=== PATIENT | male | born 1955 | race Caucasian/White ===

== ENCOUNTER → 2018-10-25 | Outpatient (CLI) | payer OTHER ==
[~2018-10-25] MED LIST: ALLERGY10 M1 PO; AMARYL4 MG PO; AMLODIPINE BESY10 MG PO; ASPIR 8181 MG PO; ATORVASTATIN CA40 MG PO; AZITHROMYCIN 2250 MG PO; BRILINTA90 MG PO; CEFUROXIME500 MG PO; COREG CR40 MG PO; COZAAR100 MG PO; D3 DOTS2000 UNIT PO; DEMADEX20 MG PO; DILTIAZEM 24HR180 M2; DUONEB 2.5-0.5 M3 ML INH; EFFIENT10 MG PO; ELIQUIS2.5 MG PO; ENTRESTO 97 MG1 EACH; ENTRESTO 97 MG1 EACH PO; FLONASE 0.05%50 MCG NASAL; HYTRIN 5 M5 MG/1 CAP PO; IMDUR 30 MG TAB30 M1 PO; IRON325 PO; ISOSORBIDE DINI30 MG PO; KLOR-CON 1010 MEQ PO; KLOR-CON 88 ME1 PO; LASIX 40 MG TAB40 M2 PO; LIALDA1.2 GM PO; MERCAPTOPURINE50 MG PO; METFORMIN HCL500 MG PO; MUCINEX TA600 MG/TA2 PO; NASONEX17 GM NASAL; NEBULIZER MISCELL; NITROGLYCERIN0.4 MG SUBLING; OMEPRAZOLE20 M2 PO; PACERONE 200 M200 M1 PO; PLAVIX 75 MG TA75 M1 PO; POTASSIUM20 PO; PREDNISONE 20 M20 MG PO; PREDNISONE 5 MG5 M1 PO; ZPAK PO
== END ==
LOC: M.WC 00:57
DX: E11.621 Type 2 diabetes mellitus with foot ulcer (principal); I87.313 Chronic venous hypertension (idiopathic) with ulcer of bilateral lower extremity; L97.521 Non-pressure chronic ulcer of other part of left foot limited to breakdown of skin; E11.622 Type 2 diabetes mellitus with other skin ulcer; L97.811 Non-pressure chronic ulcer of other part of right lower leg limited to breakdown of skin; L97.821 Non-pressure chronic ulcer of other part of left lower leg limited to breakdown of skin; E78.5 Hyperlipidemia, unspecified; I11.0 Hypertensive heart disease with heart failure; I50.9 Heart failure, unspecified; I42.9 Cardiomyopathy, unspecified; I89.0 Lymphedema, not elsewhere classified; I25.10 Atherosclerotic heart disease of native coronary artery without angina pectoris; Z95.5 Presence of coronary angioplasty implant and graft; Z95.810 Presence of automatic (implantable) cardiac defibrillator; Z79.82 Long term (current) use of aspirin

== ENCOUNTER → 2018-11-01 | Outpatient (CLI) | payer OTHER | LOC: M.WC 02:31 | DX: E11.622 Type 2 diabetes mellitus with other skin ulcer (principal); I87.312 Chronic venous hypertension (idiopathic) with ulcer of left lower extremity; L97.822 Non-pressure chronic ulcer of other part of left lower leg with fat layer exposed; E78.5 Hyperlipidemia, unspecified; I11.0 Hypertensive heart disease with heart failure; I50.9 Heart failure, unspecified; I42.9 Cardiomyopathy, unspecified; I89.0 Lymphedema, not elsewhere classified; I25.10 Atherosclerotic heart disease of native coronary artery without angina pectoris ==

== ENCOUNTER 2018-11-08 17:59 | Inpatient (IN) | payer OTHER ==
[~2018-11-08] VITALS: Ht 165.1 cm; Wt 94.7 kg
--- NOTE | ~2018-11-08 | CON ---
[address] [address] CONSULTATION Name: BEVERLEY VENTURA ORO Room: [address] IN M.R.#: [id number] Admission: 11/08/18 Attend Phys: Cr Parada MD Discharge: Date of : 51 Report #: [id number] THIS REPORT FOR: //name// CC: Cr Portillo DATE OF SERVICE: 11/11/2018 REQUESTING PHYSICIAN: Dr. Marie. REASON FOR CONSULTATION: Abnormal renal function. HISTORY OF PRESENT ILLNESS: The patient is a 63-year-old gentleman, with medical history significant for ischemic cardiomyopathy with ejection fraction of left ventricle around 25%. Also has history of coronary artery disease, chronic kidney disease stage 3, admitted with the chief complaints of progressive shortness of breath, weight gain, increased abdominal girth and increased lower extremity edema. He was diagnosed with CHF exacerbation and he is being diuresed now, is doing better. His creatinine is 2.3, it was 2.2 on 10/2017 and it was 1.6 2 years ago. PAST MEDICAL HISTORY: As mentioned earlier. SOCIAL HISTORY: No current tobacco or alcohol abuse. FAMILY HISTORY: Negative for renal disease. MEDICATIONS: Reviewed from my standpoint. Now, he is on Rocephin, IV insulin and he is on furosemide 80 mg IV twice a day, also diltiazem 180 mg daily. REVIEW OF SYSTEMS: Positive for the symptoms as I mentioned earlier. All other 10 systems reviewed and negative. PHYSICAL EXAMINATION: GENERAL: Awake, alert, oriented. VITAL SIGNS: Blood pressure 118/69, heart rate 64, afebrile. HEENT: Pupils are round. NECK: Fatty. LUNGS: Clear. CARDIOVASCULAR: Tachycardia. ABDOMEN: Obese, soft. EXTREMITIES: Lower extremities have trace to +1 edema. LABORATORY DATA: Significant for potassium of 2.8, BUN 35, creatinine 2.3. His proBNP was 16,466. [place] [id number] CONSULTATION Name: BEEVRLEY VENTURA [facility] Room: [address] IN [facility].#: [id number] Admission: 11/08/18 Attend Phys: Cr Parada MD Discharge: Date of : 51 Report #: [id number] ASSESSMENT: 1. Congestive heart failure exacerbation with ejection fraction of left ventricle around 25%. He is responding to IV diuretics well and feeling much better. 2. Chronic kidney disease, stage 3, most likely due to under perfusion of the kidneys. Whether or not he has some mild acute decompensation is not clear. Certainly, it is possible that his renal function would drop over the last 2 years and creatinine around 2-2.3 could be his baseline. 3. Obesity. PLAN: 1. Careful monitoring of his intake, output, and careful monitoring of his renal function. If his renal function deteriorate, I would cut down on his diuretics. It is possible that the patient would benefit from a switch to p.o. medication soon. 2. Replace his low potassium level. Thank you very much for asking my opinion on abnormal renal function. By: [id number] Jackson MD /SIMIN
[~2018-11-08 17:59] MED LIST changes: -ASMANEX110 MCG NASAL; -BUMETANIDE 1 MG1 M1 PO; -ELIQUIS5 MG PO; -FLEXERIL PO; -FOLIC ACID1 MG PO; -KEFLEX500 M1 PO; -LIPITOR80 MG PO; -MEDROL4 MG PO; -OMEPRAZOLE20 MG PO; -PROMETHAZINE-C473 ML PO; -TRAMADOL 50 MG50 MG PO; -VITAMINC500 PO
[2018-11-08 18:07] VITALS: BP 136/79
[2018-11-08] MEDS ORDERED: LASIX 40 MG TAB40 M2 PO (18:14)
[2018-11-08] MEDS ORDERED: PROMETHAZINE-C473 ML PO (18:15)
[2018-11-08] MEDS ORDERED: MEDROL4 MG PO (18:16)
[2018-11-08] MEDS ORDERED: TRAMADOL 50 MG50 MG PO (18:17)
[2018-11-08] MEDS ORDERED: ASMANEX110 MCG NASAL (18:20)
[2018-11-08] MEDS ORDERED: FLEXERIL PO (18:22)
[2018-11-08] MEDS ORDERED: LIALDA1.2 GM PO ×2 (18:23→23:09)
[2018-11-08] MEDS ORDERED: LIPITOR80 MG PO (18:27)
[2018-11-08] MEDS ORDERED: OMEPRAZOLE20 MG PO (18:30)
[2018-11-08] MEDS ORDERED: ASPIR 8181 MG PO (18:30)
[2018-11-08] MEDS ORDERED: METFORMIN HCL500 MG PO (18:31)
[2018-11-08 18:36] LABS: HEMATOCRIT 31.8 % (42.0-52.0); HEMOGLOBIN 10.1 gm/dL (14.0-18.0); MCH 26.2 pg (26.0-34.0); MCHC 31.6 g/dL (28.0-37.0); MCV 82.7 fL (80.0-100.0); MPV 9.3 fl. (7.2-11.1); NUCLEATED RBCS 0 /100WBC; PLATELET COUNT* 209 thou/uL (150-400); RBC 3.84 mil/uL (4.50-6.00); WBC 4.2 thou/uL (4.0-11.0)
[2018-11-08 18:44] LABS: CALCIUM 8.4 mg/dL (8.5-10.1); CREATININE 2.2 mg/dL (0.6-1.3); INR 1.3; POTASSIUM 3.3 mmol/L (3.5-5.1); PROTIME 13.4 Seconds (9.20-11.50)
[2018-11-08 18:56] LABS: ABSOLUTE EOSINOPHILS 0.1 thou/uL (0.0-0.7); ABSOLUTE LYMPHOCYTES 0.4 thou/uL (0.8-5.3); ABSOLUTE MONOCYTES 0.1 thou/uL (0.0-1.2); ABSOLUTE NEUTROPHILS 3.5 thou/uL (1.6-8.1); ANISOCYTOSIS 2+; METAMYELOCYTES 1 %; PLATELET ESTIMATE ADEQUATE; POIKILOCYTOSIS 2+
[2018-11-08 18:57] LABS: TOTAL PROTEIN 6.8 g/dL (6.4-8.2)
[2018-11-08 21:15] VITALS: BP 133/73
[2018-11-08 22:15] VITALS: BP 140/85
[2018-11-08] MEDS ORDERED: ELIQUIS5 MG PO (22:50)
[2018-11-08] MEDS ORDERED: VITAMINC500 PO (22:53)
[2018-11-08] MEDS ORDERED: IMDUR 30 MG TAB30 M1 PO (23:06)
[2018-11-09] VITALS: BP 133/73
[2018-11-09 04:00] VITALS: BP 124/64
[2018-11-09 09:25] LABS: HEMATOCRIT 30.2 % (42.0-52.0); HEMOGLOBIN 9.7 gm/dL (14.0-18.0); MCH 26.6 pg (26.0-34.0); MCHC 32.1 g/dL (28.0-37.0); MCV 82.6 fL (80.0-100.0); MPV 9.1 fl. (7.2-11.1); RBC 3.65 mil/uL (4.50-6.00); RDW-CV 20.5 % (10.5-14.5); WBC 3.5 thou/uL (4.0-11.0)
[2018-11-09 09:36] LABS: CALCIUM 8.9 mg/dL (8.5-10.1); MAGNESIUM 1.8 mg/dL (1.8-2.4)
[2018-11-09 09:39] LABS: POTASSIUM 2.8 mmol/L (3.5-5.1)
[2018-11-09 11:05] LABS: % SATURATION 8 % (20-39); IRON 23 ug/dL (50-175)
[2018-11-09 11:49] LABS: URINE BILIRUBIN NEGATIVE (Negative); URINE BLOOD 3+ (Negative); URINE CLARITY CLEAR; URINE COLOR YELLOW; URINE GLUCOSE-RANDOM NEGATIVE (Negative); URINE KETONES NEGATIVE (Negative); URINE LEUKOCYTES-REFLEX 1+ (Negative); URINE NITRITE-REFLEX NEGATIVE (Negative); URINE PROTEIN 1+ (Negative); URINE SPECIFIC GRAVITY 1.015 (1.005-1.030); URINE UROBILINOGEN 0.2 E.U./dl (0.2-1.0)
[2018-11-09 12:30] LABS: SQUAMOUS 0-3 Few /LPF (0-3)
[2018-11-09 12:31] LABS: URINE WBC-REFLEX >25 Many /HPF (0-5)
[2018-11-09 12:32] LABS: BACTERIA-REFLEX >30 Many /HPF (None Seen); WBC CLUMPS Few (None Seen)
[2018-11-09 12:33] LABS: CRYSTALS None Seen /LPF (None Seen); HYALINE CASTS 4-10 Moderate /LPF (None Seen); MUCUS 0-3 Light strn/LPF (None Seen)
[2018-11-09 13:15] VITALS: BP 130/71
--- NOTE | 2018-11-09 15:03 | 2DMMODE ---
[place] [address] 2 D/M-MODE ECHOCARDIOGRAM Name: BEVERLEY VENTURA ORO Room: [address] IN [facility]#: [id number] Admission: 11/08/18 Attend Phys: Cr Parada, Discharge: Date of : 51 Date of Service: 11/09/18 1503 Report #: [id number] THIS REPORT FOR: //name// APPROVED REPORT Study performed: 11/09/2018 10:53:12 EXAM: Comprehensive 2D, Doppler, and color-flow Echocardiogram Patient Location: In-Patient Room #: 222 Status: routine BSA: 2.11 HR: 64 bpm BP: 133/71 mmHg Rhythm: NSR Other Information Study Quality: Good Indications Congestive Heart Failure 2D Dimensions IVSd: 12.96 (7-11mm) LVOT Diam: 21.10 (18-24mm) LVDd: 62.72 mm PWd: 11.81 (7-11mm) Ascending Ao: 39.34 (22-36mm) LVDs: 52.50 (25-40mm) Aortic Root: 37.69 mm Volumes Left Atrial Volume (Systole) LA ESV Index: 71.10 mL/m2 Aortic Valve AoV Peak Terence.: 1.35 m/s AO Peak Gr.: 7.34 mmHg LVOT Max P.89 mmHg AO Mean Gr.: 3.80 mmHg LVOT Mean P.41 mmHg LVOT Max V: 1.31 m/s AO V2 VTI: 24.32 cm LVOT Mean V: 0.85 m/s ADRIEN (VTI): 3.64 cm2 LVOT V1 VTI: 25.34 cm Mitral Valve E/A Ratio: 3.16 MV Decel. Time: 147.11 ms MV E Max Terence.: 1.10 m/[place] [address] 2 D/M-MODE ECHOCARDIOGRAM Name: BEVERLEY VENTURA ORO Room: [address] IN .R.#: [id number] Admission: 11/08/18 Attend Phys: Cr Parada, Discharge: Date of : 51 Date of Service: 11/09/18 1503 Report #: [id number] MV PHT: 42.66 ms MVA (PHT): 5.16 cm2 TDI E/Lateral E': 8.46 E/Medial E': 18.33 Medial E' Terence.: 0.06 m/s Lateral E' Terence.: 0.13 m/s Pulmonary Valve PV Peak Terence.: 1.11 m/s PV Peak Gr.: 4.95 mmHg Tricuspid Valve RAP Estimate: 15.00 mmHg TR Peak Gr.: 41.02 mmHg RVSP: 56.00 mmHg PA Pressure: 56.00 mmHg Left Ventricle Left ventricle is mildly dilated. There is normal LV segmental wall motion. There is normal left ventricular wall thickness. Left ventricular systolic function is severely decreased. LVEF is 25-30%. Grade IV - fixed restrictive diastolic dysfunction. Right Ventricle Right ventricle is mild to moderately dilated. The right ventricular systolic function is normal. Pacemaker lead is present in the right ventricle. Atria Left atrium is moderately dilated. Right atrium is dilated. Aortic Valve Mild aortic valve sclerosis. Trace aortic regurgitation. There is no aortic valvular stenosis. Mitral Valve The mitral valve is normal in structure. Mild mitral regurgitation. No evidence of mitral valve stenosis. Tricuspid Valve The tricuspid valve is normal in structure. Mild tricuspid regurgitation. Mild pulmonary hypertension. Pulmonic Valve The pulmonary valve is normal in structure. [place] [address] 2 D/M-MODE ECHOCARDIOGRAM Name: BEVERLEY VENTURA Room: [address]#: [id number] Admission: 11/08/18 Attend Phys: Cr Parada, Discharge: Date of : 51 Date of Service: 11/09/18 1503 Report #: [id number] Great Vessels The aortic root is normal in size. IVC is dilated and collapses <50% with inspiration. Pericardium There is no pericardial effusion. Left pleural effusion. <Conclusion> Left ventricle is mildly dilated. There is normal left ventricular wall thickness. Left ventricular systolic function is severely decreased. LVEF is 25-30%. Right ventricle is mild to moderately dilated. Left atrium is moderately dilated. Right atrium is dilated. Mild aortic valve sclerosis. Trace aortic regurgitation. There is no aortic valvular stenosis. The mitral valve is normal in structure. Mild mitral regurgitation. The tricuspid valve is normal in structure. Mild tricuspid regurgitation. Mild pulmonary hypertension. IVC is dilated and collapses <50% with inspiration. There is no pericardial effusion. Left pleural effusion. <ELECTRONICALLY SIGNED> By: Saul Rodriguez MD, FACC 11/09/18 1503 1503 150 Saul Rodriguez MD, FACC /INF
[2018-11-09 16:00] VITALS: BP 135/76
[2018-11-09 19:14] LABS: GLYCOHEMOGLOBIN (HGB A1C) 6.3 % (4.8-5.6)
[2018-11-09 19:15] VITALS: BP 130/72
[2018-11-10] VITALS: BP 142/79
[2018-11-10 04:00] VITALS: BP 124/68; BP 135/66
[2018-11-10 05:13] LABS: HEMATOCRIT 30.6 % (42.0-52.0); HEMOGLOBIN 9.9 gm/dL (14.0-18.0); MCH 26.7 pg (26.0-34.0); MCHC 32.5 g/dL (28.0-37.0); MCV 82.3 fL (80.0-100.0); MPV 9.8 fl. (7.2-11.1); RBC 3.71 mil/uL (4.50-6.00); WBC 4.5 thou/uL (4.0-11.0)
[2018-11-10 05:35] LABS: CALCIUM 8.8 mg/dL (8.5-10.1); CREATININE 2.2 mg/dL (0.6-1.3); MAGNESIUM 1.7 mg/dL (1.8-2.4); POTASSIUM 3.3 mmol/L (3.5-5.1)
[2018-11-10 08:00] VITALS: BP 134/68
[2018-11-10 12:00] VITALS: BP 123/72
[2018-11-10 16:01] VITALS: BP 115/64
--- NOTE | 2018-11-10 17:59 | EKG ---
[place] [address] ELECTROCARDIOGRAM REPORT Name: BEVERLEY VENTURA Room: [address] ADM IN .R.#: [id number] Admission: 11/08/18 Attend Phys: Cr Parada MD Discharge: Date of : 53 Report #: [id number] THIS REPORT FOR: //name// [facility] ED Test Date: 2018-11-08 Test Time: 18:27:14 Pat Name: BEVERLEY VENTURA Department: Room: [facility] Gender: M Car Mover: Africa BANKS : 1955 Requested By: Adwoa Venegas Order Number: [id number] MD: Luke Mckeon Measurements Intervals [place] Rate: 60 P: 12 NH: 219 QRS: -42 QRSD: 121 T: 37 QT: 498 QTc: 498 Interpretive Statements Sinus rhythm Borderline prolonged NH interval Nonspecific IVCD with LAD Nonspecific T abnrm, anterolateral leads Compared to ECG 06/06/2016 14:05:32 Intraventricular conduction delay now present Left bundle-branch block no longer present Electronically Signed On 11-10-2018 17:59:10 TRACKMAN by Luke Mckeon [email or web address] <ELECTRONICALLY SIGNED> By: Luke Mckeon MD, FACC 11/10/18 1759 182 182 Luke Mckeon MD, FACC /EPI
[2018-11-10 20:08] VITALS: BP 122/67
[2018-11-11] VITALS: BP 109/60
[2018-11-11 04:00] VITALS: BP 143/75
[2018-11-11 05:24] LABS: CALCIUM 9.3 mg/dL (8.5-10.1); CREATININE 2.3 mg/dL (0.6-1.3); MAGNESIUM 1.9 mg/dL (1.8-2.4)
[2018-11-11 05:30] LABS: POTASSIUM 2.8 mmol/L (3.5-5.1)
[2018-11-11 08:40] VITALS: BP 135/64
[2018-11-11 11:38] VITALS: BP 102/55
[2018-11-11 15:46] VITALS: BP 118/69
[2018-11-11 20:00] VITALS: BP 118/61
[2018-11-12] VITALS: BP 129/78
[2018-11-12 04:00] VITALS: BP 122/68
[2018-11-12 04:52] LABS: CALCIUM 9.1 mg/dL (8.5-10.1); CREATININE 2.5 mg/dL (0.6-1.3); MAGNESIUM 1.9 mg/dL (1.8-2.4)
[2018-11-12 04:54] LABS: HEMATOCRIT 30.7 % (42.0-52.0); HEMOGLOBIN 10.1 gm/dL (14.0-18.0); MCH 26.4 pg (26.0-34.0); MPV 9.2 fl. (7.2-11.1); RBC 3.83 mil/uL (4.50-6.00); RDW-CV 19.9 % (10.5-14.5); WBC 5.3 thou/uL (4.0-11.0)
[2018-11-12 08:45] VITALS: BP 127/66
[2018-11-12 12:00] VITALS: BP 116/59
[2018-11-12] MEDS ORDERED: FOLIC ACID1 MG PO (12:58)
[2018-11-12] MEDS ORDERED: BUMETANIDE 1 MG1 M1 PO (12:58)
[2018-11-12] MEDS ORDERED: KEFLEX500 M1 PO (13:03)
== END 2018-11-12 15:37 | disposition home or self-care (01) | DRG 682 ==
LOC: M.ERS 17:59 → M.TBA-ER 19:51 → M.2W 19:51
PROVIDERS: Family Medicine; Nurse Practitioner Family; ADMIT Internal Medicine
DX: N17.9 Acute kidney failure, unspecified (principal); I50.43 Acute on chronic combined systolic (congestive) and diastolic (congestive) heart failure; I13.0 Hypertensive heart and chronic kidney disease with heart failure and stage 1 through stage 4 chronic kidney disease, or unspecified chronic kidney disease; I48.1 Persistent atrial fibrillation; N39.0 Urinary tract infection, site not specified; N18.4 Chronic kidney disease, stage 4 (severe); E78.5 Hyperlipidemia, unspecified; I25.5 Ischemic cardiomyopathy; I25.10 Atherosclerotic heart disease of native coronary artery without angina pectoris; E66.9 Obesity, unspecified; G47.33 Obstructive sleep apnea (adult) (pediatric); D50.9 Iron deficiency anemia, unspecified; E11.22 Type 2 diabetes mellitus with diabetic chronic kidney disease; E53.8 Deficiency of other specified B group vitamins; E87.6 Hypokalemia; E83.42 Hypomagnesemia; Z95.5 Presence of coronary angioplasty implant and graft; Z95.0 Presence of cardiac pacemaker; Z88.8 Allergy status to other drugs, medicaments and biological substances; Z68.34 Body mass index [BMI] 34.0-34.9, adult; Z82.49 Family history of ischemic heart disease and other diseases of the circulatory system; Z83.3 Family history of diabetes mellitus; Z80.3 Family history of malignant neoplasm of breast; Z79.82 Long term (current) use of aspirin

== ENCOUNTER → 2018-11-08 | Outpatient (CLI) | payer OTHER ==
[~2018-11-08] MED LIST changes: +ASMANEX110 MCG NASAL; +BUMETANIDE 1 MG1 M1 PO; -DILTIAZEM 24HR180 M2; +DILTIAZEM 24HR180 M2 PO; +ELIQUIS5 MG PO; +FLEXERIL PO; +FOLIC ACID1 MG PO; -HYTRIN 5 M5 MG/1 CAP PO; +KEFLEX500 M1 PO; +LIPITOR80 MG PO; +MEDROL4 MG PO; +OMEPRAZOLE20 MG PO; +PROMETHAZINE-C473 ML PO; +TERAZOSIN HCL5 MG PO; +TRAMADOL 50 MG50 MG PO; +VITAMINC500 PO
== END ==
LOC: M.WC 00:52
DX: I87.312 Chronic venous hypertension (idiopathic) with ulcer of left lower extremity (principal); L97.822 Non-pressure chronic ulcer of other part of left lower leg with fat layer exposed; E78.5 Hyperlipidemia, unspecified; I89.0 Lymphedema, not elsewhere classified; I11.0 Hypertensive heart disease with heart failure; I50.9 Heart failure, unspecified; I25.10 Atherosclerotic heart disease of native coronary artery without angina pectoris; I42.9 Cardiomyopathy, unspecified

== ENCOUNTER → 2018-11-17 | Outpatient (CLI) | payer OTHER ==
[~2018-11-17] MED LIST changes: +ASMANEX110 MCG NASAL; +BUMETANIDE 1 MG1 M1 PO; +ELIQUIS5 MG PO; +FLEXERIL PO; +FOLIC ACID1 MG PO; +KEFLEX500 M1 PO; +LIPITOR80 MG PO; +MEDROL4 MG PO; +OMEPRAZOLE20 MG PO; +PROMETHAZINE-C473 ML PO; +TRAMADOL 50 MG50 MG PO; +VITAMINC500 PO
[2018-11-17 15:00] LABS: CALCIUM 8.1 mg/dL (8.5-10.1); CREATININE 2.5 mg/dL (0.6-1.3); POTASSIUM 3.7 mmol/L (3.5-5.1)
== END ==
LOC: M.LAB 14:17
PROVIDERS: Internal Medicine Cardiovascular Disease
DX: I13.0 Hypertensive heart and chronic kidney disease with heart failure and stage 1 through stage 4 chronic kidney disease, or unspecified chronic kidney disease (principal); E11.22 Type 2 diabetes mellitus with diabetic chronic kidney disease; N18.3 Chronic kidney disease, stage 3 (moderate); I50.9 Heart failure, unspecified

== ENCOUNTER → 2018-11-18 | Outpatient (CLI) | payer OTHER | LOC: M.WC 04:31 | DX: I87.312 Chronic venous hypertension (idiopathic) with ulcer of left lower extremity (principal); L97.821 Non-pressure chronic ulcer of other part of left lower leg limited to breakdown of skin; I89.0 Lymphedema, not elsewhere classified; I11.0 Hypertensive heart disease with heart failure; I50.9 Heart failure, unspecified; I42.9 Cardiomyopathy, unspecified; I25.10 Atherosclerotic heart disease of native coronary artery without angina pectoris; E78.5 Hyperlipidemia, unspecified; E66.9 Obesity, unspecified; Z68.37 Body mass index [BMI] 37.0-37.9, adult ==

== ENCOUNTER → 2018-11-25 | Outpatient (CLI) | payer BC | LOC: M.WC 11-22 02:01 | DX: I87.312 Chronic venous hypertension (idiopathic) with ulcer of left lower extremity (principal); L97.828 Non-pressure chronic ulcer of other part of left lower leg with other specified severity; E78.5 Hyperlipidemia, unspecified; E66.9 Obesity, unspecified; I89.0 Lymphedema, not elsewhere classified; I42.9 Cardiomyopathy, unspecified; I25.10 Atherosclerotic heart disease of native coronary artery without angina pectoris; I11.0 Hypertensive heart disease with heart failure; I50.9 Heart failure, unspecified; Z68.37 Body mass index [BMI] 37.0-37.9, adult ==

== ENCOUNTER → 2019-02-04 | Outpatient (CLI) | payer BC ==
[2019-02-04 14:44] LABS: CALCIUM 8.6 mg/dL (8.5-10.1); CREATININE 2.8 mg/dL (0.6-1.3); POTASSIUM 3.4 mmol/L (3.5-5.1)
== END ==
LOC: M.LAB 14:18
PROVIDERS: Nurse Practitioner
DX: I11.0 Hypertensive heart disease with heart failure (principal); I50.22 Chronic systolic (congestive) heart failure; E11.9 Type 2 diabetes mellitus without complications

== ENCOUNTER 2019-08-05 14:31 | Inpatient (IN) | payer BC, MEDICARE ==
[~2019-08-05] VITALS: Ht 167.6 cm; Wt 99.3 kg
--- NOTE | ~2019-08-05 | CON ---
[address] [address] CONSULTATION Name: BEVERLEY VENTURA Room: [address] IN .R.#: [id number] Admission: 08/05/19 Attend Phys: Africa Schrader Discharge: Date of : 51 Report #: [id number] THIS REPORT FOR: //name// CC: Tanvi Marcus DATE OF SERVICE: 08/06/2019 CONSULTING PHYSICIAN: John Marcus DO REASON FOR CONSULTATION: Acute kidney injury. HISTORY OF PRESENT ILLNESS: The patient is a 64-year-old gentleman who was admitted with falls and leg pain. He was found to have an elevated creatinine of 4.8 on admission. He has had decreased oral intake as of late and takes an ARB and a diuretic as an outpatient. He has been started on some IV fluids and is feeling somewhat better. Denies any chest pain or shortness of breath and currently does not have any complaints. REVIEW OF SYSTEMS: Constitutional, psych, heme, eyes, ENT, respiratory, cardiac, GI, , endocrine, all negative except as documented above. PAST MEDICAL HISTORY: Chronic kidney disease, hypertension, history of pacemaker/defibrillator, dyslipidemia, diabetes, hypertension. SOCIAL HISTORY: No tobacco. FAMILY HISTORY: Not pertinent in this 64-year-old gentleman. CURRENT MEDICATIONS: Reviewed. PHYSICAL EXAMINATION: VITAL SIGNS: Blood pressure 105/62, pulse 61, respirations 16, temperature 36.6. GENERAL: No acute distress. EYES: Open. EARS: Externally normal. NECK: Supple. CARDIOVASCULAR: Regular rate. LUNGS: No crackles. ABDOMEN: Soft. MUSCULOSKELETAL: Nontender. PSYCHIATRIC: Awake, alert. LABORATORY DATA: White cell count 7.7, hemoglobin 9.8, platelets 230. Sodium 134, potassium 2.6, chloride 95, bicarbonate 26, BUN 129, creatinine 4.2, [place] [address] CONSULTATION Name: BEVERLEY VENTURA Room: [address]#: [id number] Admission: 08/05/19 Attend Phys: Africa Schrader Discharge: Date of : 53 Report #: [id number] glucose 295, calcium 8.4, albumin 2.5. ASSESSMENT: 1. Acute kidney injury with an admission creatinine of 4.8. On 02/04, creatinine was 2.8. In 10/2018, EF was 25% with diastolic dysfunction. UA is noted. The 10/2018 ultrasound was consistent with chronic kidney disease. This is acute kidney injury in the setting of volume depletion while on Bumex and ARB with positive orthostatics. 2. Chronic kidney disease stage 4, followed by Dr. Jackson as an outpatient. Exact baseline creatinine unknown. In 01/2019, creatinine was 2.8. 3. Hypoalbuminemia with an albumin of 2.5. 4. Coronary artery disease with a history of coronary artery bypass graft. 5. Diabetes type 2. PLAN: 1. Continue IV fluids. Hold ARB and loop diuretic. 2. No indication for kidney ultrasound at this time. We will monitor. 3. Suggest either stopping the colchicine or ensuring that it is renally dosed. 4. Hypokalemia, replace. 5. Hyponatremia, mild. We will monitor. 6. Check labs again in the a.m. including a CK. Thank you for requesting my opinion in the care and management of this patient. By: [id number] Tunde Vaughn MD /nam
[~2019-08-05 14:31] MED LIST changes: +OMEPRAZOLE 20 M20 M1 PO; -OMEPRAZOLE20 MG PO
[2019-08-05 14:39] VITALS: BP 109/47
[2019-08-05] MEDS ORDERED: PACERONE 200 M200 M1 PO (14:45)
[2019-08-05] MEDS ORDERED: PROSCAR 5MG TABL5 MG PO (14:47)
[2019-08-05] MEDS ORDERED: MERCAPTOPURINE50 MG PO (14:49)
[2019-08-05] MEDS ORDERED: CETIRIZINE HCL5 MG PO (14:51)
[2019-08-05 15:16] LABS: ABSOLUTE BASOPHILS 0.1 thou/uL (0.0-0.2); ABSOLUTE EOSINOPHILS 0.2 thou/uL (0.0-0.7); ABSOLUTE LYMPHOCYTES 0.8 thou/uL (0.8-5.3); ABSOLUTE MONOCYTES 0.8 thou/uL (0.0-1.2); ABSOLUTE NEUTROPHILS 8.5 thou/uL (1.6-8.1); BASOPHILS 0.6 %; EOSINOPHILS 1.7 %; HEMATOCRIT 31.1 % (42.0-52.0); HEMOGLOBIN 11.3 gm/dL (14.0-18.0); LYMPHOCYTES 7.9 %; MCHC 36.3 g/dL (28.0-37.0); MCV 88.3 fL (80.0-100.0); MONOCYTES 7.4 %; MPV 9.2 fl. (7.2-11.1); NUCLEATED RBCS 0 /100WBC; PLATELET COUNT* 267 thou/uL (150-400); POLYS 82.4 %; RBC 3.52 mil/uL (4.50-6.00); RDW-CV 14.3 % (10.5-14.5); WBC 10.3 thou/uL (4.0-11.0)
[2019-08-05] MEDS ORDERED: TRAMADOL 50 MG50 MG PO (15:26)
[2019-08-05 15:28] LABS: INR 1.2; PROTIME 11.8 Seconds (9.20-11.50)
[2019-08-05 15:35] LABS: CALCIUM 8.8 mg/dL (8.5-10.1); CREATININE 4.8 mg/dL (0.6-1.3); POTASSIUM 3.8 mmol/L (3.5-5.1)
[2019-08-05 15:39] LABS: ALBUMIN 2.8 g/dL (3.4-5.0); TOTAL BILIRUBIN 0.8 mg/dL (<0.1-1.0); TOTAL PROTEIN 7.2 g/dL (6.4-8.2); TROPONIN-I LEVEL 0.07 ng/mL (<0.06)
[2019-08-05 18:15] VITALS: BP 107/53
[2019-08-05 20:00] VITALS: BP 95/51
[2019-08-05] MEDS ORDERED: ENTRESTO 49 MG1 EACH PO (20:05)
[2019-08-05 21:05] LABS: CALCIUM 8.5 mg/dL (8.5-10.1); CREATININE 4.5 mg/dL (0.6-1.3); MAGNESIUM 2.5 mg/dL (1.8-2.4); POTASSIUM 3.3 mmol/L (3.5-5.1)
[2019-08-06] VITALS: BP 106/60; BP 116/63
[2019-08-06 00:31] LABS: URINE BILIRUBIN NEGATIVE (Negative); URINE BLOOD NEGATIVE (Negative); URINE CLARITY CLEAR; URINE COLOR YELLOW; URINE GLUCOSE-RANDOM 2+ (Negative); URINE KETONES NEGATIVE (Negative); URINE LEUKOCYTES-REFLEX NEGATIVE (Negative); URINE NITRITE-REFLEX NEGATIVE (Negative); URINE PROTEIN NEGATIVE (Negative); URINE SPECIFIC GRAVITY <= 1.005 (1.005-1.030); URINE UROBILINOGEN 0.2 E.U./dl (0.2-1.0)
[2019-08-06 04:00] VITALS: BP 113/55
[2019-08-06 04:41] LABS: HEMATOCRIT 27.6 % (42.0-52.0); HEMOGLOBIN 9.8 gm/dL (14.0-18.0); MCH 31.1 pg (26.0-34.0); MCHC 35.6 g/dL (28.0-37.0); MCV 87.1 fL (80.0-100.0); MPV 9.4 fl. (7.2-11.1); RBC 3.17 mil/uL (4.50-6.00); RDW-CV 14.7 % (10.5-14.5); WBC 7.7 thou/uL (4.0-11.0)
[2019-08-06 05:08] LABS: ALBUMIN 2.5 g/dL (3.4-5.0); CALCIUM 8.4 mg/dL (8.5-10.1); CREATININE 4.2 mg/dL (0.6-1.3); TOTAL BILIRUBIN 0.7 mg/dL (<0.1-1.0); TOTAL PROTEIN 6.5 g/dL (6.4-8.2)
[2019-08-06 05:11] LABS: POTASSIUM 2.6 mmol/L (3.5-5.1)
[2019-08-06 07:00] VITALS: BP 106/58
--- NOTE | 2019-08-06 12:50 | EKG ---
[place] [address] ELECTROCARDIOGRAM REPORT Name: BEVERLEY VENTURA Room: [address] ADM IN .R.#: [id number] Admission: 08/05/19 Attend Phys: Africa Schrader Discharge: Date of : 51 Report #: [id number] THIS REPORT FOR: //name// [facility] ED Test Date: 2019-08-05 Test Time: 14:41:56 Pat Name: BEVERLEY VENTURA Department: Room: [facility] Gender: M Cleaner And Dyer: CLAUDINE : 1955 Requested By: Jules Galarza Order Number: [id number] MD: Saul Rodriguez Measurements Intervals [place] Rate: 63 P: GA: 234 QRS: -42 QRSD: 123 T: 60 QT: 460 QTc: 471 Interpretive Statements Atrial-paced rhythm Nonspecific IVCD with LAD Inferior infarct, old possible Compared to ECG 11/08/2018 18:27:14 Myocardial infarct finding now present Sinus rhythm no longer present Electronically Signed On 08-06-2019 12:50:04 CDT by Saul Rodriguez [email or web address] <ELECTRONICALLY SIGNED> By: Saul Rodriguez MD, [facility] 08/06/19 1250 1441 1441 Saul Rodriguez MD, [facility] /EPI
[2019-08-06 13:54] VITALS: BP 98/55
[2019-08-06 20:00] VITALS: BP 100/58; BP 96/99
[2019-08-07] VITALS: BP 112/62
[2019-08-07 04:00] VITALS: BP 126/59
[2019-08-07 05:11] LABS: ALBUMIN 2.5 g/dL (3.4-5.0); CALCIUM 8.7 mg/dL (8.5-10.1); MAGNESIUM 2.4 mg/dL (1.8-2.4); PHOSPHORUS* 4.7 mg/dL (2.5-4.9); POTASSIUM 3.1 mmol/L (3.5-5.1)
[2019-08-07 08:00] VITALS: BP 108/59
[2019-08-07 12:14] VITALS: BP 80/51
[2019-08-07 15:54] VITALS: BP 84/44
[2019-08-07 20:00] VITALS: BP 108/64
[2019-08-08] VITALS: BP 109/54
[2019-08-08 03:07] LABS: GLYCOHEMOGLOBIN (HGB A1C) 15.5 % (4.8-5.6)
[2019-08-08 04:00] VITALS: BP 105/64
[2019-08-08 04:53] LABS: HEMATOCRIT 28.4 % (42.0-52.0); HEMOGLOBIN 9.8 gm/dL (14.0-18.0); MCH 30.4 pg (26.0-34.0); MCHC 34.4 g/dL (28.0-37.0); MCV 88.3 fL (80.0-100.0); MPV 8.8 fl. (7.2-11.1); RBC 3.22 mil/uL (4.50-6.00); RDW-CV 14.6 % (10.5-14.5); WBC 6.9 thou/uL (4.0-11.0)
[2019-08-08 05:04] LABS: CREATININE 4.1 mg/dL (0.6-1.3); POTASSIUM 3.3 mmol/L (3.5-5.1)
[2019-08-08 05:12] LABS: ALBUMIN 2.5 g/dL (3.4-5.0); CALCIUM 8.9 mg/dL (8.5-10.1); CREATININE 4.2 mg/dL (0.6-1.3); MAGNESIUM 2.5 mg/dL (1.8-2.4); PHOSPHORUS* 4.3 mg/dL (2.5-4.9); POTASSIUM 3.3 mmol/L (3.5-5.1)
[2019-08-08 07:42] VITALS: BP 105/58
[2019-08-08] MEDS ORDERED: ELIQUIS5 MG PO (12:26)
[2019-08-08] MEDS ORDERED: ENTRESTO 24 MG1 EACH PO (12:26)
[2019-08-08] MEDS ORDERED: BUMETANIDE 1 MG1 M1 PO (12:26)
[2019-08-08] MEDS ORDERED: COREG6.25 MG PO (12:26)
[2019-08-08 12:29] VITALS: BP 110/63
[2019-08-08 16:05] VITALS: BP 107/57
--- NOTE | 2019-08-08 16:12 | 2DMMODE ---
[place] [address] 2 D/M-MODE ECHOCARDIOGRAM Name: BEVERLEY VENTURA ORO Room: [address] IN [facility]#: [id number] Admission: 08/05/19 Attend Phys: John Marcus Discharge: Date of : 51 Date of Service: 08/08/19 1612 Report #: [id number] THIS REPORT FOR: //name// APPROVED REPORT Study performed: 08/08/2019 10:36:48 EXAM: Comprehensive 2D, Doppler, and color-flow Echocardiogram Patient Location: In-Patient Room #: 231 Status: routine BSA: 2.09 HR: 62 bpm BP: 105/64 mmHg Rhythm: NSR Other Information Study Quality: Good Indications Hypotension CAD 2D Dimensions IVSd: 13.02 (7-11mm) LVOT Diam: 22.86 (18-24mm) LVDd: 53.03 mm PWd: 11.39 (7-11mm) Ascending Ao: 39.42 (22-36mm) LVDs: 37.38 (25-40mm) Aortic Root: 42.16 mm Volumes Left Atrial Volume (Systole) LA ESV Index: 36.90 mL/m2 Aortic Valve AoV Peak Ternece.: 1.49 m/s AO Peak Gr.: 8.89 mmHg LVOT Max P.22 mmHg AO Mean Gr.: 4.80 mmHg LVOT Mean P.34 mmHg LVOT Max V: 0.90 m/s AO V2 VTI: 26.62 cm LVOT Mean V: 0.52 m/s ADRIEN (VTI): 2.72 cm2 LVOT V1 VTI: 17.63 cm Mitral Valve E/A Ratio: 0.80 MV Decel. Time: 317.01 [place] [address] 2 D/M-MODE ECHOCARDIOGRAM Name: VENTURABEVERLEY Stack Room: [address] IN [facility]#: [id number] Admission: 08/05/19 Attend Phys: John Marcus Discharge: Date of : 51 Date of Service: 08/08/19 1612 Report #: [id number] MV E Max Terence.: 0.66 m/s MV PHT: 91.93 ms MVA (PHT): 2.39 cm2 TDI E/Lateral E': 7.33 E/Medial E': 9.43 Medial E' Terence.: 0.07 m/s Lateral E' Terence.: 0.09 m/s Pulmonary Valve PV Peak Terence.: 1.21 m/s PV Peak Gr.: 5.89 mmHg Left Ventricle The left ventricle is normal size. There is global hypokinesis of the left ventricle. Mild concentric left ventricular hypertrophy. Left ventricular systolic function is mildly decreased. LVEF is 35-40%. Grade I - abnormal relaxation pattern. Right Ventricle Right ventricle is dilated. The right ventricular systolic function is normal. Pacemaker lead is present in the right ventricle. Atria Left atrium is mildly dilated. The right atrium size is normal. Aortic Valve The aortic valve is normal in structure. No aortic regurgitation is present. There is no aortic valvular stenosis. Mitral Valve The mitral valve is normal in structure. Mild mitral regurgitation. No evidence of mitral valve stenosis. Tricuspid Valve The tricuspid valve is normal in structure. Unable to assess PA pressure. Trace tricuspid regurgitation. Pulmonic Valve The pulmonary valve is normal in structure. There is no pulmonic valvular regurgitation. Great Vessels Aortic root is mildly dilated. IVC is normal in size and collapses >50% [place] [address] 2 D/M-MODE ECHOCARDIOGRAM Name: BEVERLEY VENTURA Room: [address]#: [id number] Admission: 08/05/19 Attend Phys: John Marcus Discharge: Date of : 51 Date of Service: 08/08/19 1612 Report #: [id number] Pericardium Mild pericardial effusion. <Conclusion> Mild concentric left ventricular hypertrophy. LVEF is 35-40%. Right ventricle is dilated. Left atrium is mildly dilated. Mild mitral regurgitation. <ELECTRONICALLY SIGNED> By: Emanuel Bush MD, [facility] 08/08/191611 11 11 Emanuel Bush MD, [facility] /INF
--- NOTE | 2019-08-08 17:48 | CON ---
[address] [address] CONSULTATION Name: BEVERLEY VENTURA Room: [address] IN .R.#: [id number] Admission: 08/05/19 Attend Phys: Africa Schrader Discharge: Date of : 53 Report #: [id number] THIS REPORT FOR: //name// CC: Tanvi Donaldson DATE OF SERVICE: 08/08/2019 CARDIOLOGY CONSULTATION HISTORY OF PRESENT ILLNESS: The patient is a 64-year-old male, who I was asked to see in the hospital today after he fell. The patient has an extensive past medical history. He has a history of an ischemic cardiomyopathy. He has had previous stenting of his LAD and diagonal by Dr. Rodriguez in 2016. He had evidence of a cardiomyopathy and eventually underwent implantation of a biventricular [employer] [place] defibrillator [address] James. He has a history of paroxysmal atrial fibrillation and has been chronically anticoagulated. He apparently never required cardioversion. He has a history of chronic edema and takes metolazone every 3 days. His last echocardiogram in 10/2018 showed an ejection fraction of 30%. The patient last saw Dr. Fontana in April. He has a history of chronic kidney disease. This past year, his blood pressure was noted to be low and his Entresto was decreased to half a tablet twice a day. He has a history of leg weakness and uses a cane. Three days ago, he apparently fell to the ground when he claims that his legs gave out. He did not injure himself. He was noted to have low blood pressure and was admitted 3 days ago. He denies any recent chest pain, increased shortness of breath, edema, palpitations or bleeding. Cardiology consultation was requested. PAST MEDICAL HISTORY: Significant for tonsillectomy, uvulectomy, sleep apnea, hypertension, diabetes, hyperlipidemia. CURRENT MEDICATIONS: Consist of the following: He is on Bumex twice a day, amiodarone 200 mg a day, potassium every day, torsemide daily, mercaptopurine daily, Entresto 49/51 twice a day, Cardizem CD 100 mg a day, Lipitor 80 mg a day, Coreg 25 mg twice a day, terazosin 5 mg a day, aspirin 81 mg every other day, omeprazole 20 mg a day. ALLERGIES: HE HAS A PREVIOUS INTOLERANCE TO EFFIENT WHEN HE DEVELOPED A RASH. FAMILY HISTORY: His father of heart attack. SOCIAL HISTORY: He is . He and his live in [place]. He has a Ph.D. and medals and works for [employer]. No [place] [address] CONSULTATION Name: BEVERLEY VENTURA ORO Room: [address] IN .R.#: [id number] Admission: 08/05/19 Attend Phys: Africa Schrader Discharge: Date of : 51 Report #: [id number] REVIEW OF SYSTEMS: He has had no history of stroke. He has a history of anemia, had previous EGD and colonoscopy, showed no bleeding. He was told to cut his aspirin every other day. No history of liver disease or cancer. He does wear glasses. PHYSICAL EXAMINATION: GENERAL: Revealed a middle-aged male, who appeared in no distress. VITAL SIGNS: On Thursday, he had a blood pressure of only 80, currently his blood pressure is 105/64; pulse 60; he is afebrile. HEENT: He was anicteric. Conjunctivae pink. Mucous membranes moist. NECK: Neck veins do not appear distended. No carotid bruits. Neck is supple. CHEST: Clear to auscultation. CARDIAC: Regular rate and rhythm. ABDOMEN: Soft. EXTREMITIES: Had no edema. Dorsalis pedis pulses 1+ bilaterally. SKIN: Cool and dry. NEUROLOGIC: Nonfocal. LYMPH: No adenopathy. MUSCULOSKELETAL: No joint effusion. LABORATORY DATA: His workup in the hospital: His ECG showed atrial-paced rhythm. His lab work: Sodium 139; BUN 124; creatinine is 4.1, it was 2.8 in January; his glucose is 126. His albumin is 2.5. In July, his TSH was 1.0. His white blood cell count 6.9, hemoglobin 9.8. He had a portable chest x-ray that showed cardiomegaly, clear lung holloway, no pulmonary edema. IMPRESSION AND RECOMMENDATIONS: 1. Coronary artery disease. I would continue aspirin 81 mg every other day. No recent angina. 2. Cardiomyopathy. Last echocardiogram showing ejection fraction 30%. Because of the low blood pressure, I decreased the dose of his carvedilol and Entresto. I would hold diuretics because of his renal failure. I would not recommend Aldactone because of his renal failure. 3. Previous implantation of defibrillator. No recent discharges. 4. History of atrial fibrillation. The patient is on amiodarone. Because of his renal failure, I would decrease the dose of his Eliquis to 2.5 mg twice a day. 5. Renal failure. I would consider Nephrology consultation. 6. Diabetes. 7. Hyperlipidemia. The patient is on a statin drug. 8. Anemia. No history of bleeding, with negative gastrointestinal workup in [facility] [address] [facility] [address] CONSULTATION Name: LEANDRA VENTURARONI ORO Room: [address] IN [facility].#: [id number] Admission: 08/05/19 Attend Phys: Africa Schrader Discharge: Date of : 51 Report #: [id number] the past. 9. Sleep apnea. Previous surgery. The patient uses CPAP. <ELECTRONICALLY SIGNED> By: Emanuel Bush MD, FACC 08/08/19 1748 0836 1054Dphoenix Bush MD, FACC /nt
[2019-08-08 20:00] VITALS: BP 113/63
[2019-08-09] VITALS: BP 99/57
[2019-08-09 04:00] VITALS: BP 126/88
[2019-08-09 05:57] LABS: % SATURATION 29 % (20-39); IRON 66 ug/dL (50-175)
[2019-08-09 06:25] LABS: CALCIUM 9.1 mg/dL (8.5-10.1); MAGNESIUM 2.5 mg/dL (1.8-2.4); POTASSIUM 3.6 mmol/L (3.5-5.1)
[2019-08-09 08:15] VITALS: BP 107/65
[2019-08-09 11:36] VITALS: BP 115/66
[2019-08-09] MEDS ORDERED: ALLOPURINOL 10100 M1 PO (17:18)
[2019-08-09] MEDS ORDERED: PREDNISONE 10 M10 MG PO (17:22)
[2019-08-09] MEDS ORDERED: HUMALOG100 UNIT/1 SUBQ (17:24)
[2019-08-09] MEDS ORDERED: BUMEX2 MG PO (18:10)
[2019-08-09] MEDS ORDERED: METOLAZONE 2.52.5 M1 PO (18:12)
== END 2019-08-09 18:35 | disposition home health service (06) | DRG 312 ==
LOC: M.ERS 14:31 → M.2W 16:05 → M.TBA-ER 16:05 → M.2W 18:25
PROVIDERS: Emergency Medicine; Internal Medicine; Internal Medicine Nephrology; ADMIT Internal Medicine
DX: I95.1 Orthostatic hypotension (principal); N17.0 Acute kidney failure with tubular necrosis; N18.4 Chronic kidney disease, stage 4 (severe); E87.1 Hypo-osmolality and hyponatremia; I13.0 Hypertensive heart and chronic kidney disease with heart failure and stage 1 through stage 4 chronic kidney disease, or unspecified chronic kidney disease; E11.22 Type 2 diabetes mellitus with diabetic chronic kidney disease; E78.5 Hyperlipidemia, unspecified; E86.0 Dehydration; E87.6 Hypokalemia; I25.5 Ischemic cardiomyopathy; I48.0 Paroxysmal atrial fibrillation; E03.9 Hypothyroidism, unspecified; K21.9 Gastro-esophageal reflux disease without esophagitis; M79.605 Pain in left leg; E11.40 Type 2 diabetes mellitus with diabetic neuropathy, unspecified; I50.9 Heart failure, unspecified; G47.33 Obstructive sleep apnea (adult) (pediatric); M10.9 Gout, unspecified; M79.604 Pain in right leg; D64.9 Anemia, unspecified; I25.10 Atherosclerotic heart disease of native coronary artery without angina pectoris; Z95.1 Presence of aortocoronary bypass graft; Z95.810 Presence of automatic (implantable) cardiac defibrillator; Z95.5 Presence of coronary angioplasty implant and graft; Z79.01 Long term (current) use of anticoagulants; Z79.82 Long term (current) use of aspirin; Z79.899 Other long term (current) drug therapy; Z88.8 Allergy status to other drugs, medicaments and biological substances; Z82.49 Family history of ischemic heart disease and other diseases of the circulatory system; Z83.3 Family history of diabetes mellitus

== ENCOUNTER 2019-10-03 15:05 | Inpatient (IN) | payer BC, MEDICARE ==
[~2019-10-03] VITALS: Ht 167.6 cm; Wt 85.3 kg
[~2019-10-03 15:05] MED LIST changes: +ALLOPURINOL 10100 M1 PO; +BUMEX2 MG PO; +CETIRIZINE HCL5 MG PO; +COREG6.25 MG PO; +ENTRESTO 24 MG1 EACH PO; +ENTRESTO 49 MG1 EACH PO; +HUMALOG100 UNIT/1 SUBQ; +METOLAZONE 2.52.5 M1 PO; +PREDNISONE 10 M10 MG PO; +PROSCAR 5MG TABL5 MG PO
[2019-10-03 15:09] VITALS: BP 148/99
[2019-10-03 15:36] LABS: HEMATOCRIT 34.7 % (42.0-52.0); HEMOGLOBIN 11.5 gm/dL (14.0-18.0); MCH 31.8 pg (26.0-34.0); MCHC 33.2 g/dL (28.0-37.0); MCV 95.6 fL (80.0-100.0); MPV 9.8 fl. (7.2-11.1); NUCLEATED RBCS 0 /100WBC; PLATELET COUNT* 245 thou/uL (150-400); RBC 3.63 mil/uL (4.50-6.00); RDW-CV 17.2 % (10.5-14.5)
[2019-10-03 15:46] LABS: APTT 35.7 Seconds (25.0-31.3); INR 1.1
[2019-10-03 16:01] LABS: CALCIUM 8.8 mg/dL (8.5-10.1); CREATININE 1.7 mg/dL (0.6-1.3); POTASSIUM 4.1 mmol/L (3.5-5.1)
[2019-10-03 16:15] LABS: ALBUMIN 2.8 g/dL (3.4-5.0); CK-MB MASS 0.7 ng/mL (<0.5-3.6); MAGNESIUM 1.7 mg/dL (1.8-2.4); TOTAL BILIRUBIN 1.4 mg/dL (<0.1-1.0); TOTAL PROTEIN 7.1 g/dL (6.4-8.2)
[2019-10-03 16:22] LABS: ABSOLUTE LYMPHOCYTES 0.9 thou/uL (0.8-5.3); ABSOLUTE MONOCYTES 0.7 thou/uL (0.0-1.2); ABSOLUTE NEUTROPHILS 8.4 thou/uL (1.6-8.1)
[2019-10-03 16:24] LABS: CLUMPED PLTS OCCASIONAL; LARGE PLATELETS OCCASIONAL; PLATELET ESTIMATE ADEQUATE
[2019-10-03 16:25] LABS: ANISOCYTOSIS 1+; POIKILOCYTOSIS 1+
[2019-10-03 17:26] VITALS: BP 143/81
[2019-10-03 18:00] VITALS: BP 143/85
--- NOTE | 2019-10-03 19:25 | NUR ---
PT ARRIVED FROM ER AROUND 1730. ASSESSMENT COMPLETED CHARTED. ABLE TO MAKE NEEDS KNOWN. UP WITH SBA. USES URINAL NEEDED. AT BEDSIDE AT THIS TIME. SITTING UP ON SIDE OF BED AT THIS TIME. MED REC TO BE COMPLETED SOON GIVEN PT LIST. NO C/O PAIN OR DISCOMFORT. ON 2L O2. WILL CONTINUE TO MONITOR.
[2019-10-03 20:00] VITALS: BP 135/77
--- NOTE | 2019-10-03 20:00 | NUR ---
RECEIVED REPORT AND ASSUMED CARE OF PT, ASSESSMENT COMPLETED. O2 ON AT 2L/NC, NO SOA NOTED. VOIDING WELL PER URINAL. TELEMETRY ON SHOWING SR WITH 1ST AVB. DENIES DISCOMFORT. STAYING THE NIGHT. WILL CONT TO MONITOR AND ASSIST NEEDED.
[2019-10-03] MEDS ORDERED: VITAMIN D32000 UNIT PO (20:48)
[2019-10-04 01:00] VITALS: BP 149/86
[2019-10-04 05:02] VITALS: BP 148/82
[2019-10-04 05:18] LABS: HEMATOCRIT 34.3 % (42.0-52.0); MCH 30.9 pg (26.0-34.0); MCHC 32.1 g/dL (28.0-37.0); MCV 96.1 fL (80.0-100.0); MPV 10.1 fl. (7.2-11.1); RBC 3.57 mil/uL (4.50-6.00); RDW-CV 17.5 % (10.5-14.5); WBC 7.4 thou/uL (4.0-11.0)
--- NOTE | 2019-10-04 05:58 | NUR ---
SLEPT WELL TONIGHT. VOIDING WELL AFTER DIURETIC. TELEMETRY CONT TO SHOW SR WITH 1ST AVB. NO CHANGE IN ASSESSMENT. HS GOALS OF REST AND SAFETY ACHIEVED. HOURLY ROUNDING OBSERVED
[2019-10-04 06:15] LABS: CALCIUM 8.8 mg/dL (8.5-10.1); CREATININE 1.9 mg/dL (0.6-1.3); POTASSIUM 3.6 mmol/L (3.5-5.1)
[2019-10-04 07:45] VITALS: BP 144/85
--- NOTE | 2019-10-04 11:01 | EKG ---
[place] [address] ELECTROCARDIOGRAM REPORT Name: BEVERLEY VENTURA Room: [address] ADM IN M.R.#: [id number] Admission: 10/03/19 Attend Phys: Marissa Winter Discharge: Date of : 51 Report #: [id number] THIS REPORT FOR: //name// [facility] ED Test Date: 2019-10-03 Test Time: 15:12:18 Pat Name: BEVERLEY VENTURA Department: Room: [facility] Gender: M Sports Agent: : 1955 Requested By: Franklin De La Cruz Order Number: [id number] : Luke Mckeon Measurements Intervals [place] Rate: 94 P: 261 AK: 159 QRS: -61 QRSD: 134 T: 97 QT: 395 QTc: 495 Interpretive Statements Sinus rhythm with first-degree AV block Nonspecific IVCD with LAD Consider anterior infarct Nonspecific T abnormalities, lateral leads Compared to ECG 08/05/2019 14:41:56 T-wave abnormality now present Atrial-paced complex(es) or rhythm no longer present Ventricular-paced complex(es) or rhythm no longer present Myocardial infarct finding still present Electronically Signed On 10-04-2019 11:01:25 VEHICLE REFINISHER by Luke Mckeon [email or web address] <ELECTRONICALLY SIGNED> By: Luke Mckeon MD, [facility] 10/04/19 1101 11 11 Luke Mckeon MD, FAC /EPI
[2019-10-04 11:53] VITALS: BP 138/84
--- NOTE | 2019-10-04 14:34 | NUR ---
Pt is A&O. Resides at home with . Normally active and independent. Pt has a cane and walker that he can use if needed. Hx of [facility], no hx of SNF. Goal is home at [place]. Following
[2019-10-04 15:31] LABS: URINE BILIRUBIN NEGATIVE (Negative); URINE BLOOD NEGATIVE (Negative); URINE CLARITY CLEAR; URINE COLOR YELLOW; URINE GLUCOSE-RANDOM NEGATIVE (Negative); URINE KETONES NEGATIVE (Negative); URINE LEUKOCYTES-REFLEX NEGATIVE (Negative); URINE NITRITE-REFLEX NEGATIVE (Negative); URINE PROTEIN NEGATIVE (Negative); URINE UROBILINOGEN 0.2 E.U./dl (0.2-1.0)
[2019-10-04 17:27] VITALS: BP 133/82
--- NOTE | 2019-10-04 19:37 | NUR ---
RECEVIED REPORT. ASSUMED CARE OF PT AROUND 0730. PT A&O X4. VSS. CARD GRADER IN PLACE TRACING SR WITH 1ST DEGREE AV BLOCK WITH NO CHANGES THIS SHIFT. AM ASSESSMENT AND VITALS COMPLETED CHARTED. MEDS PER EMAR. PT DIURESISING THIS SHIFT - OUTPUT CHARTED. FLUID RESTICTION MAINTAINED, 1000ML FOR THIS SHIFT. PT TOLERATING DIET. AT BEDSIDE THROUGHOUT SHIFT. PT DENIED PAIN TODAY. NO COMPLAINTS. PT CURRENTLY SITTING UP IN BEDSIDE CHAIR WATCHING TV. FALL PRECAUTIONS IN PLACE. CALL LIGHT IS WITHIN REACH. HOURLY ROUNDING PERFORMED.
[2019-10-04 20:00] VITALS: BP 140/84
[2019-10-05] VITALS: BP 140/77
[2019-10-05 04:00] VITALS: BP 138/75
[2019-10-05 04:51] LABS: ABSOLUTE LYMPHOCYTES 0.5 thou/uL (0.8-5.3); ABSOLUTE MONOCYTES 0.7 thou/uL (0.0-1.2); ABSOLUTE NEUTROPHILS 6.7 thou/uL (1.6-8.1); BASOPHILS 0.2 %; EOSINOPHILS 0.1 %; HEMATOCRIT 31.9 % (42.0-52.0); HEMOGLOBIN 10.8 gm/dL (14.0-18.0); LYMPHOCYTES 5.9 %; MCH 31.7 pg (26.0-34.0); MCHC 33.9 g/dL (28.0-37.0); MCV 93.5 fL (80.0-100.0); MONOCYTES 8.6 %; MPV 9.3 fl. (7.2-11.1); NUCLEATED RBCS 0 /100WBC; PLATELET COUNT* 388 thou/uL (150-400); POLYS 85.2 %; RBC 3.42 mil/uL (4.50-6.00); RDW-CV 17.2 % (10.5-14.5); WBC 7.9 thou/uL (4.0-11.0)
[2019-10-05 04:59] LABS: CALCIUM 8.8 mg/dL (8.5-10.1); CREATININE 2.1 mg/dL (0.6-1.3); POTASSIUM 3.1 mmol/L (3.5-5.1)
--- NOTE | 2019-10-05 05:03 | NUR ---
PT HAS C/O PAIN TO THROAT. ENCOURAGED TO RINSE AND SPIT AFTER BREATHING TREATMENTS AND PROVIDED SUGAR FREE COUGH SUPPRESSANTS. AT BEDSIDE. NO OTHER CONCERNS NOTED AT THIS TIME. CURRENTLY ASLEEP WITH CALL LIGHT WITHIN REACH.
[2019-10-05 08:00] VITALS: BP 141/80
--- NOTE | 2019-10-05 11:16 | NUR ---
HF EDUCATION REVIEWED THE USE OF CARVEDILOL AND THE MEDICATION'S PURPOSE IN THE TREATMENT OF HF. WENT OVER SIDE EFFECTS AND HOW CARVEDILOL MAY CONTRIBUTE TO ORTHOSTATIC HYPOTENSION ALONG WITH SITTING UP FOR 10 SECONDS TO ALLOW THE BODY TO ADJUST A PREVENTATIVE MEASURE. LEFT EDUCATION SHEET, AND MENTIONED THAT IF THERE ARE ANY NEW MEDICATIONS TO CALL THE PHARMACY FOR INFORMATION.
[2019-10-05 12:30] VITALS: BP 130/70
[2019-10-05 16:00] VITALS: BP 129/77
--- NOTE | 2019-10-05 18:22 | NUR ---
PT VSS, PT SINUS RHYTHM WITH BBB AND 1*AV BLOCK, A&OX4, PT STAND BY ASSIST WITH WALKER. SPOUSE IS AT BEDSIDE. D/C 10/06 TO 10/07. HOULRY ROUNDING PERFORMED, POSSESSIONS AND CALL LIGHT WITHIN REACH.
[2019-10-05 20:30] VITALS: BP 135/79
[2019-10-06 00:33] VITALS: BP 137/77
[2019-10-06 04:00] VITALS: BP 137/77
[2019-10-06 04:48] LABS: CALCIUM 8.8 mg/dL (8.5-10.1); CREATININE 2.3 mg/dL (0.6-1.3)
[2019-10-06 04:50] LABS: POTASSIUM 2.7 mmol/L (3.5-5.1)
--- NOTE | 2019-10-06 05:19 | NUR ---
PT SLEPT MOST OF SHIFT. REMAINED AT BEDSIDE. ASSESSMENT DOCUMENTED. MEDS GIVEN PER E-MAR. IV PATENT. NO REPORTS OF PAIN. PT HAS CRITICAL K THIS AM. NOTIFROC. WILL CONTINUE WITH PLAN OF CARE.
[2019-10-06 08:00] VITALS: BP 113/77
[2019-10-06 11:43] VITALS: BP 128/60
[2019-10-06 13:14] LABS: CALCIUM 9.2 mg/dL (8.5-10.1); CREATININE 2.5 mg/dL (0.6-1.3)
[2019-10-06 16:17] VITALS: BP 108/63
--- NOTE | 2019-10-06 18:57 | NUR ---
PT VSS, A&OX4, SR WITH BBB AND 1*AV BLOCK ON TELE, PT STAND BY ASSIST. 1500 ML FLUID RESTRICTION. HOURLY ROUNDING PERFORMED, POSSESSIONS AND CALL LIGHT WITHIN REACH.
[2019-10-06 20:45] VITALS: BP 100/64
[2019-10-07] VITALS (7 sets, daily range): BP systolic 116–140; BP diastolic 65–83
[2019-10-07 04:43] LABS: CALCIUM 8.9 mg/dL (8.5-10.1); CREATININE 2.7 mg/dL (0.6-1.3); MAGNESIUM 1.8 mg/dL (1.8-2.4)
[2019-10-07 04:48] LABS: POTASSIUM 2.8 mmol/L (3.5-5.1)
--- NOTE | 2019-10-07 06:46 | NUR ---
PT SLEPT MOST OF SHIFT. ASSESSMENT DOCUMENTED. MEDS GIVEN PER E-MAR. IV PATENT. NO REPORTS OF PAIN. POTASSIUM CRITICALLY LOW THIS AM, DR NOTIFIED, ORDERS RECIEVED. WILL CONTINUE WITH PLAN OF CARE.
--- NOTE | 2019-10-07 09:05 | CON ---
[address] [address] CONSULTATION Name: BEVERLEY VENTURA Room: [address] IN M.R.#: [id number] Admission: 10/03/19 Attend Phys: Marissa Winter Discharge: Date of : 51 Report #: [id number] THIS REPORT FOR: //name// CC: Marissa Khanna Mohammad Pourakbar DATE OF SERVICE: 10/05/2019 NEPHROLOGY CONSULTATION CONSULTING PHYSICIAN: Marissa Khanna MD. REASON FOR NEPHROLOGY CONSULTATION: Fluid overload and chronic kidney disease stage 4. REASON FOR ADMISSION: Shortness of breath. HISTORY OF PRESENT ILLNESS: This is a 64-year-old male with past medical history of chronic kidney disease stage 4, his baseline creatinine used to be around 2.2-2.5, but he had severe acute kidney injury in July of this year when creatinine went up to 4.8, history of chronic systolic congestive heart failure, ejection fraction 35-40% with biventricular defibrillator, chronic atrial fibrillation on anticoagulation, coronary artery disease status post stents, uncontrolled type 2 diabetes, came in with shortness of breath and he also had some chest pressure. He denies having any cough or any sputum production. His creatinine was 1.7 on admission. The patient follows with Dr. Jackson as outpatient that is his cereal chemist. He was last seen in the office in August of this year and at that time, his creatinine was 1.7. Before that, he was admitted to [facility] in July when his creatinine was 4.8 and at that time, his Bumex and Entresto were stopped and he was given IV fluids and creatinine was 4.0 at the time of discharge. Although his weight is at his dry weight of 213 pounds, he was feeling quite short of breath when he came to the hospital this time and his chest x-ray showed pulmonary vascular congestion and he was given a dose of IV Lasix and he has diuresed well with that. He had about 2000 mL of urine output in the last 24 hours. His creatinine is 2.1 today slightly worse when he came in, but his breathing is much better and Nephrology has been consulted to help with diuresis. He also has possible right-sided healthcare-associated pneumonia and is being treated for that by primary team. His is at his bedside. He takes care of his sodium intake, his fluid restriction at home. ALLERGIES: PLASTIC GLUE. REVIEW OF SYSTEMS: As mentioned in history of present illness, otherwise 10-point review [place] [address] CONSULTATION Name: KITA VENTURAMARIA ANTONIA ORO Room: [address] ADM IN M.R.#: [id number] Admission: 10/03/19 Attend Phys: Marissa Winter Discharge: Date of : 51 Report #: [id number] MEDICATIONS: Home medications which include ferrous sulfate, amiodarone, finasteride, tramadol, terazosin, potassium chloride 20 mEq daily, mometasone, aspirin 81 mg daily, ascorbic acid, mercaptopurine, cetirizine, insulin lispro, metolazone as needed for edema. The patient was not taking cholecalciferol, atorvastatin. PAST MEDICAL AND SURGICAL HISTORY: Includes tonsillectomy, deviated septum, uvula removal x 3, coronary artery, diabetes type 2, hyperlipidemia, hypertension, cardioversion, chronic kidney disease stage 4, baseline creatinine 2.2-2.5, which is in the setting of vascular disease and diabetes, pacemaker defibrillator. FAMILY HISTORY: Heart disease, breast cancer and diabetes. SOCIAL HISTORY: He lives at home with . Does not smoke or take alcohol or use illicit drugs. PHYSICAL EXAMINATION: VITAL SIGNS: Blood pressure is 138/75, respiratory rate is 19, pulse rate is 79, temperature is 36.4, pulse ox is 94%. He is on 2 liters of oxygen by nasal cannula. GENERAL: He is awake, alert, oriented x 3, sitting at the side of the bed, comfortable. HEAD AND EYES: Atraumatic, normocephalic. Normal conjunctivae. EARS, NOSE, AND THROAT: Normal ears and nose. Mucous membranes are moist. NECK: No JVD. CHEST: Diminished breath sounds bilaterally posteriorly, but no crackles heard posteriorly. CARDIOVASCULAR: S1, S2 normal. No murmurs. ABDOMEN: Soft, nondistended, nontender. Bowel sounds are present. EXTREMITIES: Lower extremities, there is no lower extremity edema today. Symmetrical lower extremities. NEUROLOGICAL FUNCTION: Gross neurological function is intact. PSYCHIATRIC: Mood and affect seem to be normal. LABORATORY DATA: Hemoglobin is 10.8. Sodium is 140, potassium is 3.1, CO2 is 20, BUN 30, creatinine 2.1. Other labs are reviewed. IMAGING: Chest x-ray was reviewed. ASSESSMENT: 1. History of chronic kidney disease stage 4, baseline creatinine of 2.3-2.5, creatinine was 2.1 at the time, still within his baseline. Chronic kidney disease in the setting of vascular disease and diabetes type 2 and urinalysis is unremarkable. There is no need for renal imaging right now. 2. The patient presented with acute on chronic systolic heart failure. He was [place] [address] [address] CONSULTATION Name: BEVERLEY VENTURA Room: [address] IN M.R.#: [id number] Admission: 10/03/19 Attend Phys: Marissa dangelo Lapaz Discharge: Date of : 51 Report #: [id number] not on diuretics because of recent dehydration episode when he also had acute kidney injury. 3. Right lower lobe pneumonia. 4. Ischemic cardiomyopathy, ejection fraction 35-40% with 1 diastolic dysfunction, history of CABG. 5. Chronic atrial fibrillation. 6. Uncontrolled type 2 diabetes in July 2019. Hemoglobin A1c was 15.5. He is on insulin after that. 7. Right-sided pneumonia. PLAN: 1. His IV Lasix has been stopped, will put him on a fluid restriction 1.5 liters a day and he was given 2 g sodium restriction and we will put him on Bumex 1 mg a day. 2. Potassium replaced. Continue potassium 20 mEq once a day. 3. Strict I's and O's. 4. Avoid nephrotoxic agents. 5. History of pneumonia, but I will defer to primary team for treatment of pneumonia. Thank you for this consultation. We will continue to follow his kidney function closely. Discussed with the patient, the patient's as well as the patient's nurse. <ELECTRONICALLY SIGNED> By: Nelia Beltre MD 10/07/1905 6 [id number] alex Woody
--- NOTE | 2019-10-07 18:15 | NUR ---
VSS, SR W/ BBB AND 1*AV BLOCK, A&OX4, HOURLY ROUNDING PERFORMED, POSSESSIONS AND CALL LIGHT WITHIN REACH. PT STAND BY ASSIST WITH WALKER. VOIDS IN URINAL. 1500 ML FLUID RESTRICTION.
--- NOTE | 2019-10-08 02:36 | NUR ---
PT ALERT ORIENTED. UP WITH STD ASSIST AND WALKER. TELEMETRY SHOWS SR BBB. DENIES PAIN. ON RA. WCTM
[2019-10-08 04:00] VITALS: BP 145/81
[2019-10-08 04:16] LABS: ABSOLUTE BASOPHILS 0.1 thou/uL (0.0-0.2); ABSOLUTE EOSINOPHILS 0.4 thou/uL (0.0-0.7); ABSOLUTE LYMPHOCYTES 0.7 thou/uL (0.8-5.3); ABSOLUTE MONOCYTES 0.6 thou/uL (0.0-1.2); ABSOLUTE NEUTROPHILS 5.1 thou/uL (1.6-8.1); EOSINOPHILS 5.9 %; HEMOGLOBIN 10.6 gm/dL (14.0-18.0); LYMPHOCYTES 10.5 %; MCH 31.1 pg (26.0-34.0); MCHC 33.3 g/dL (28.0-37.0); MCV 93.5 fL (80.0-100.0); MONOCYTES 9.2 %; NUCLEATED RBCS 0 /100WBC; PLATELET COUNT* 393 thou/uL (150-400); POLYS 73.4 %; RBC 3.42 mil/uL (4.50-6.00); RDW-CV 17.2 % (10.5-14.5)
[2019-10-08 04:27] LABS: CALCIUM 8.8 mg/dL (8.5-10.1); CREATININE 2.4 mg/dL (0.6-1.3); POTASSIUM 3.2 mmol/L (3.5-5.1)
[2019-10-08 07:38] VITALS: BP 135/74
[2019-10-08 11:30] VITALS: BP 128/61; BP 96/50
[2019-10-08 16:00] VITALS: BP 96/51
[2019-10-08 20:00] VITALS: BP 94/61
[2019-10-08 23:45] VITALS: BP 115/63
[2019-10-09 03:55] VITALS: BP 136/69
[2019-10-09 05:03] LABS: ABSOLUTE BASOPHILS 0.1 thou/uL (0.0-0.2); ABSOLUTE EOSINOPHILS 0.3 thou/uL (0.0-0.7); ABSOLUTE LYMPHOCYTES 0.8 thou/uL (0.8-5.3); ABSOLUTE MONOCYTES 0.8 thou/uL (0.0-1.2); ABSOLUTE NEUTROPHILS 5.5 thou/uL (1.6-8.1); BASOPHILS 0.8 %; EOSINOPHILS 4.4 %; HEMATOCRIT 32.7 % (42.0-52.0); LYMPHOCYTES 11.1 %; MCH 31.4 pg (26.0-34.0); MCHC 33.6 g/dL (28.0-37.0); MCV 93.4 fL (80.0-100.0); MONOCYTES 10.2 %; MPV 9.9 fl. (7.2-11.1); NUCLEATED RBCS 0 /100WBC; PLATELET COUNT* 350 thou/uL (150-400); POLYS 73.5 %; RDW-CV 17.2 % (10.5-14.5); WBC 7.5 thou/uL (4.0-11.0)
[2019-10-09 05:12] LABS: CALCIUM 9.1 mg/dL (8.5-10.1); CREATININE 2.4 mg/dL (0.6-1.3)
--- NOTE | 2019-10-09 07:51 | NUR ---
ASSUMED CARE OF PT AFTER REPORT AT 1600. PT A&OX4. VSS. PHYSICAL ASSESSMENT COMPLETED AND CHARTED. PT ON RA. PT TARCING AFIB/VPACED. PT UPSTANDBY. PT DENIES ANY PAIN OR DISCOMFORT. REMINDED ON FLUID RESTRICTION. AT BS. PT ABLE TO SLEEP WELL ON BED. CALL LIGHT WITHIN REACH.
[2019-10-09 08:00] VITALS: BP 140/71
[2019-10-09 09:48] VITALS: BP 140/71
[2019-10-09] MEDS ORDERED: BUMEX2 MG PO (11:16)
--- NOTE | 2019-10-09 12:22 | NUR ---
ASSUMED PT CARE AT 0800, AOX4, UP SBA, O2 SAT 90'S RA, TRACING AFIB, V PACED ON TELE. PT DENIES PAIN. PT FOR DISCHARGE. VSS, AM ASSESSMENT CHARTED, MEDS GIVEN PER MAR, CALL LIGHT WITHIN REACH, HOURLY ROUNDING, WILL CONTINUE TO MONITOR.
--- NOTE | 2019-10-09 13:42 | NUR ---
DISCHARGE PLAN DISCUSSED WITH THE PT AND . TELE, IV REMOVED. MEDICATION PACKET GIVEN. REMINDED TO FOLLOW UP WITH PCP, RENAL, CARDIOLOGY. ALL BELONGINGS PACKED AND CHECK. LEFT THE UNIT 1310.
== END 2019-10-09 13:10 | disposition home or self-care (01) | DRG 291 ==
LOC: M.ERS 15:05 → M.2W 16:31 → M.TBA-ER 16:31 → M.2W 17:43
PROVIDERS: Emergency Medicine; Internal Medicine; ADMIT Family Medicine
DX: I13.0 Hypertensive heart and chronic kidney disease with heart failure and stage 1 through stage 4 chronic kidney disease, or unspecified chronic kidney disease (principal); J18.9 Pneumonia, unspecified organism; I50.43 Acute on chronic combined systolic (congestive) and diastolic (congestive) heart failure; N18.4 Chronic kidney disease, stage 4 (severe); I48.20 Chronic atrial fibrillation, unspecified; D68.59 Other primary thrombophilia; N17.9 Acute kidney failure, unspecified; E78.5 Hyperlipidemia, unspecified; E11.22 Type 2 diabetes mellitus with diabetic chronic kidney disease; I25.9 Chronic ischemic heart disease, unspecified; I25.5 Ischemic cardiomyopathy; E83.42 Hypomagnesemia; E80.6 Other disorders of bilirubin metabolism; E79.0 Hyperuricemia without signs of inflammatory arthritis and tophaceous disease; E53.8 Deficiency of other specified B group vitamins; I48.0 Paroxysmal atrial fibrillation; E87.6 Hypokalemia; Z95.0 Presence of cardiac pacemaker; Z88.8 Allergy status to other drugs, medicaments and biological substances; Z82.49 Family history of ischemic heart disease and other diseases of the circulatory system; Z83.3 Family history of diabetes mellitus; Z80.3 Family history of malignant neoplasm of breast; Z95.1 Presence of aortocoronary bypass graft; Z79.01 Long term (current) use of anticoagulants; Z79.82 Long term (current) use of aspirin; Z79.899 Other long term (current) drug therapy

== ENCOUNTER → 2019-10-14 | Outpatient (CLI) | payer BC, MEDICARE ==
[~2019-10-14] MED LIST changes: +HYDRALAZINE 2525 MG PO; +LIPITOR40 MG PO; +VITAMIN D32000 UNIT PO
[2019-10-14 12:41] LABS: CALCIUM 9.4 mg/dL (8.5-10.1); CREATININE 2.2 mg/dL (0.6-1.3); POTASSIUM 3.9 mmol/L (3.5-5.1)
== END ==
LOC: M.LAB 12:11
PROVIDERS: Nurse Practitioner
DX: I11.0 Hypertensive heart disease with heart failure (principal); I50.21 Acute systolic (congestive) heart failure

== ENCOUNTER 2019-10-15 14:56 | Inpatient (IN) | payer BC, MEDICARE ==
[~2019-10-15] VITALS: Ht 170.2 cm; Wt 84.8 kg
[~2019-10-15 14:56] MED LIST changes: -HYDRALAZINE 2525 MG PO
[2019-10-15 15:01] VITALS: BP 142/87
[2019-10-15 15:26] LABS: MCH 31.3 pg (26.0-34.0); NUCLEATED RBCS 0 /100WBC
[2019-10-15 15:30] LABS: ABSOLUTE BASOPHILS 0.1 thou/uL (0.0-0.2); ABSOLUTE EOSINOPHILS 0.2 thou/uL (0.0-0.7); ABSOLUTE LYMPHOCYTES 0.7 thou/uL (0.8-5.3); ABSOLUTE NEUTROPHILS 9.2 thou/uL (1.6-8.1); BASOPHILS 0.8 %; EOSINOPHILS 1.7 %; HEMATOCRIT 35.9 % (42.0-52.0); LYMPHOCYTES 6.4 %; MCHC 33.4 g/dL (28.0-37.0); MCV 93.7 fL (80.0-100.0); MPV 10.5 fl. (7.2-11.1); POLYS 82.1 %; RBC 3.83 mil/uL (4.50-6.00); RDW-CV 16.7 % (10.5-14.5); WBC 11.2 thou/uL (4.0-11.0)
[2019-10-15 15:31] LABS: CREATININE 1.9 mg/dL (0.6-1.3); POTASSIUM 4.4 mmol/L (3.5-5.1)
[2019-10-15 15:35] LABS: APTT 32.7 Seconds (25.0-31.3); INR 1.2; PROTIME 11.8 Seconds (9.20-11.50)
[2019-10-15 15:42] LABS: TOTAL BILIRUBIN 1.2 mg/dL (<0.1-1.0); TOTAL PROTEIN 7.4 g/dL (6.4-8.2)
[2019-10-15 16:21] LABS: PLATELET COUNT* 280 thou/uL (150-400)
[2019-10-15 17:13] VITALS: BP 136/83
[2019-10-15 20:00] VITALS: BP 134/81
[2019-10-16] VITALS (7 sets, daily range): BP systolic 102–134; BP diastolic 58–85
[2019-10-16 05:34] LABS: HEMATOCRIT 33.4 % (42.0-52.0); MCH 31.1 pg (26.0-34.0); MCHC 32.9 g/dL (28.0-37.0); MCV 94.4 fL (80.0-100.0); MPV 9.7 fl. (7.2-11.1); NUCLEATED RBCS 0 /100WBC; PLATELET COUNT* 281 thou/uL (150-400); RBC 3.54 mil/uL (4.50-6.00); RDW-CV 16.4 % (10.5-14.5); WBC 6.8 thou/uL (4.0-11.0)
[2019-10-16 05:43] LABS: CALCIUM 8.3 mg/dL (8.5-10.1); CREATININE 2.1 mg/dL (0.6-1.3)
[2019-10-16 06:39] LABS: ABSOLUTE LYMPHOCYTES 0.2 thou/uL (0.8-5.3); ABSOLUTE NEUTROPHILS 6.6 thou/uL (1.6-8.1); METAMYELOCYTES 2 %; PLATELET ESTIMATE ADEQUATE
--- NOTE | 2019-10-16 12:00 | CON ---
[address] [address] CONSULTATION Name: BEVERLEY VENTURA ORO Room: [address] IN M.R.#: [id number] Admission: 10/15/19 Attend Phys: Roberto Carlos Jenkins MD Discharge: Date of : 53 Report #: [id number] THIS REPORT FOR: //name// CC: Roberto Carlos Tinajero [facility] CARDIOLOGY CONSULTATION HISTORY OF PRESENT ILLNESS: The patient is a very pleasant 64-year-old male with complex coronary artery disease, prior myocardial infarction, prior stenting, and a severe ischemic cardiomyopathy in that context for it. Ejection fractions have been in the 20-30% range at different times. He presented yesterday with increasing dyspnea and radiographic evidence for interstitial edema and congestive heart failure. He received IV Lasix with a prominent diuresis and is feeling much better today. His Bumex was increased from 0.5 to 1 mg daily and he was continued on other cardiac medicines including aspirin, amiodarone 200 mg daily, insulin, Eliquis 2.5 mg b.i.d. PAST MEDICAL HISTORY: Remarkable for multiple problems including coronary artery disease, hypertension, hyperlipidemia, paroxysmal atrial fibrillation and prior placement of a dual chamber ICD. Past medical history is remarkable for carotid stenosis, chronic renal insufficiency, and diabetes. SOCIAL HISTORY: The patient is and is a nonsmoker. REVIEW OF SYSTEMS: Remarkable for the following: PULMONARY: He notes dyspnea with minimal activity; this is improved after parenteral diuresis. EXTREMITIES: He has noted mild lower extremity edema. Remainder is unremarkable. LABORATORY DATA: Reveals white blood cell count 6800, hemoglobin 11.8, platelets 281,000. Sodium 143, potassium 5.0, BUN 36, creatinine 2.1. NT-BNP on admission 12,802. IMPRESSION: 1. Acute on chronic systolic heart failure. 2. Coronary artery disease. 3. Status post myocardial infarction and prior percutaneous coronary intervention. 4. Diabetes. 5. Severe ischemic cardiomyopathy. 6. Chronic renal insufficiency. RECOMMENDATIONS: [place] [address] [facility] Room: [address] IN .R.#: [id number] Admission: 10/15/19 Attend Phys: Roberto Carlos Jenkins MD Discharge: Date of : 51 Report #: [id number] 1. Agree with initial parenteral diuresis and augmentation of oral Bumex to 1.0 mg daily. The patient will require careful titration given the magnitude of LV systolic dysfunction in the presence of concomitant renal disease as noted above. I made no empiric adjustment in his medical regimen on the basis of current data. <ELECTRONICALLY SIGNED> By: Saul Rodriguez MD, [facility] 10/16/19 1200 1020 1109John Akash Rodriguez MD, FACC /nt
[2019-10-17 04:00] VITALS: BP 118/78
[2019-10-17 08:00] VITALS: BP 135/80
--- NOTE | 2019-10-17 11:27 | EKG ---
[place] [address] ELECTROCARDIOGRAM REPORT Name: BEVERLEY VENTURA Room: [address] ADM IN .R.#: [id number] Admission: 10/15/19 Attend Phys: Roberto Carlos Jenkins MD Discharge: Date of : 51 Report #: [id number] THIS REPORT FOR: //name// [facility] ED Test Date: 2019-10-15 Test Time: 15:02:05 Pat Name: BEVERLEY VENTURA Department: Room: [facility] Gender: M Assignment Clerk: EMILIANA : 1955 Requested By: Arian Riddle Order Number: [id number] MD: Emanuel Bush Measurements Intervals Maynard Rate: 83 P: -2 HI: 237 QRS: -41 QRSD: 128 T: 81 QT: 421 QTc: 495 Interpretive Statements Sinus rhythm poor r wave progression Prolonged HI interval Nonspecific IVCD with LAD Compared to ECG 10/03/2019 15:12:18 First degree AV block now present Electronically Signed On 10-17-2019 11:26:58 BUNCHER MACHINE by Emanuel Bush [email or web address] <ELECTRONICALLY SIGNED> By: Emanuel Bush MD, FACC 10/17/19 1126 1502 1502 Emanuel Bush MD, [facility] /EPI
[2019-10-17 12:00] VITALS: BP 101/63
[2019-10-17 16:00] VITALS: BP 94/59
[2019-10-17 20:00] VITALS: BP 108/73
[2019-10-18] VITALS (8 sets, daily range): BP systolic 105–132; BP diastolic 62–78
[2019-10-18 04:37] LABS: ABSOLUTE BASOPHILS 0.1 thou/uL (0.0-0.2); ABSOLUTE EOSINOPHILS 0.1 thou/uL (0.0-0.7); ABSOLUTE LYMPHOCYTES 0.9 thou/uL (0.8-5.3); ABSOLUTE MONOCYTES 0.6 thou/uL (0.0-1.2); ABSOLUTE NEUTROPHILS 5.6 thou/uL (1.6-8.1); BASOPHILS 1.4 %; HEMATOCRIT 31.7 % (42.0-52.0); HEMOGLOBIN 10.6 gm/dL (14.0-18.0); LYMPHOCYTES 12.2 %; MCH 31.1 pg (26.0-34.0); MCHC 33.5 g/dL (28.0-37.0); MCV 92.9 fL (80.0-100.0); MONOCYTES 8.2 %; MPV 10.3 fl. (7.2-11.1); NUCLEATED RBCS 0 /100WBC; PLATELET COUNT* 245 thou/uL (150-400); POLYS 77.2 %; RBC 3.42 mil/uL (4.50-6.00); RDW-CV 16.7 % (10.5-14.5); WBC 7.3 thou/uL (4.0-11.0)
[2019-10-18 04:41] LABS: CALCIUM 8.3 mg/dL (8.5-10.1); CREATININE 2.9 mg/dL (0.6-1.3); POTASSIUM 3.7 mmol/L (3.5-5.1)
[2019-10-19] VITALS: BP 123/70
[2019-10-19 04:00] VITALS: BP 118/69
[2019-10-19 05:11] LABS: ABSOLUTE EOSINOPHILS 0.2 thou/uL (0.0-0.7); ABSOLUTE MONOCYTES 0.6 thou/uL (0.0-1.2); ABSOLUTE NEUTROPHILS 4.5 thou/uL (1.6-8.1); BASOPHILS 0.3 %; EOSINOPHILS 3.9 %; HEMOGLOBIN 10.6 gm/dL (14.0-18.0); LYMPHOCYTES 16.2 %; MCH 30.9 pg (26.0-34.0); MCV 93.6 fL (80.0-100.0); MPV 9.9 fl. (7.2-11.1); NUCLEATED RBCS 0 /100WBC; PLATELET COUNT* 269 thou/uL (150-400); POLYS 69.6 %; RBC 3.42 mil/uL (4.50-6.00); RDW-CV 16.3 % (10.5-14.5); WBC 6.4 thou/uL (4.0-11.0)
[2019-10-19 05:32] LABS: CALCIUM 8.1 mg/dL (8.5-10.1); CREATININE 2.9 mg/dL (0.6-1.3)
[2019-10-19 07:00] VITALS: BP 128/80
[2019-10-19 08:33] VITALS: BP 128/80
[2019-10-19] MEDS ORDERED: ISOSORBIDE DINI30 MG PO (09:44)
[2019-10-19] MEDS ORDERED: HYDRALAZINE 2525 MG PO (09:49)
--- NOTE | 2019-10-19 14:27 | CON ---
[address] [address] CONSULTATION Name: BEVERLEY VENTURA ORO Room: [address] IN M.R.#: [id number] Admission: 10/15/19 Attend Phys: Roberto Carlos Jenkins MD Discharge: 10/19/19 Date of : 51 Report #: [id number] THIS REPORT FOR: //name// CC: Roberto Carlos Portillo DATE OF SERVICE: 10/18/2019 NEPHROLOGY CONSULTATION LOCATION: Room [facility] [place] on [address]. I am asked to see this 64-year-old gentleman at the request of Dr. Jenkins for imocw-ao-higeyyw kidney disease. CHIEF COMPLAINT: The patient was admitted to the hospital on 10/15 with shortness of air. He had noted a weight gain. He was unable to breathe comfortably at home and came to the ED. He was found to have evidence of pulmonary edema and was subsequently admitted. PAST MEDICAL HISTORY: He has complex coronary artery disease or prior CA, prior stenting and a severe ischemic cardiomyopathy. His ejection fractions have been in the 20% to 30% range at different times. He had evidence of interstitial edema on his chest x-ray and received prompt IV Lasix with excellent diuresis. He felt better, almost immediately, after diuresis was achieved. His Bumex was increased here in the hospital and he is on his cardiac meds including aspirin, amiodarone and Eliquis. He is also on insulin. His other history is positive for hypertension, hyperlipidemia, PAF, prior placement of a dual chamber ICD. He has carotid stenosis, chronic renal disease and diabetes. His creatinine is often 2 or less when he is "wet" and after diuresis increases up into the mid 2s. Hence his CKD ranges from stage 3 to stage 4. FAMILY HISTORY: Positive for coronary artery disease, diabetes, and breast cancer. SOCIAL HISTORY: Very supportive family. He is a never tobacco user. No alcohol, no recreational drugs. ALLERGIES: NOTED TO PRASUGREL. HOME MEDICATIONS: At the time of admission are ferrous sulfate 325 mg daily, iron 65 mg daily, finasteride 5 mg daily, tramadol 50 mg q.12h p.r.n. pain, terazosin 5 mg daily, potassium chloride 20 mEq b.i.d. Aspirin X 50 mcg nasally daily, aspirin 81 mg chewable aspirin every other day, ascorbic acid 500 mg daily, amiodarone 200 mg daily, Zyrtec 10 mg daily, insulin per sliding scale, metolazone 2.5 mg daily, cholecalciferol, vitamin D3 is 2000 units daily, [place] [address] CONSULTATION Name: BEVERLEY VENTURA ORO Room: [address] IN M.R.#: [id number] Admission: 10/15/19 Attend Phys: Roberto Carlos Jenkins MD Discharge: 10/19/19 Date of : 51 Report #: [id number] 1 mg daily, atorvastatin 40 mg tablets 2 daily. He is also on folic acid 1 mg daily, Eliquis 2.5 mg b.i.d. and carvedilol 6.25 mg b.i.d. with meals. REVIEW OF SYSTEMS: HEENT: No recent changes in vision or hearing. CARDIAC: No chest pain. PULMONARY: Shortness of breath was present on admission, but has resolved with diuresis. GASTROINTESTINAL: No nausea, vomiting, diarrhea, constipation. GENITOURINARY: CKD no difficulty in passing his urine. No urgency, frequency, or dysuria. HEMATOLOGIC AND LYMPHATIC: No malignancy history. MUSCULOSKELETAL: Some weakness. ENDOCRINE: Positive type 2 diabetes mellitus, insulin-dependent. PSYCHIATRIC: Negative. NEUROLOGIC: No TIA, CVA, Parkinson disease or seizure disorder. Other 14-point review of systems is positive for surgeries which include tonsillectomy, septal surgery for his nasal septum, uvula removal, coronary stents x 3. He has also had cardioversion. He has had a pacemaker defibrillator placement. PHYSICAL EXAMINATION: GENERAL: He is sitting in his bedside chair, awake, alert, not in any acute distress, breathing easily. VITAL SIGNS: Temperature is 36.3, heart rate 75, respirations 16, blood pressure 105/70, O2 sat 92%. Intake and output yesterday 780 and 1550 out. Thus far today 1200 and 3950 out. HEENT: Atraumatic, normocephalic. Pupils react to light. NECK: Supple, no increased jugular venous pressure at 45 degrees. CHEST: Clear bilaterally with symmetrical breath sounds. HEART: Regular rhythm. No rubs. ABDOMEN: Soft, obese, nontender. Positive bowel sounds. No masses. EXTREMITIES: Show trace edema. Negative Homans, 2+ femoral pulses distally diminished, but extremities are warm, dry, well perfused. NEUROLOGIC: Cranial nerves, sensory and motor appear to be at her baseline. LABORATORY DATA: Shows a white count of 7300, hemoglobin 10.6, hematocrit 31.7, platelets 245,000. Coags show a PT of 11.8, INR 1.2, PTT 32.7 on admission. Electrolytes today shows sodium of 147, potassium 3.7, chloride 108, CO2 of 26, BUN and creatinine 54 and 2.9 that has increased in a couple of days from 36 and 2.1 two days ago with about a 4-5 liter diuresis during that time. Glucose 114, calcium 8.3. Recent liver function studies showed a total bilirubin of 1.2. AST, ALT and alkaline phosphatase were unremarkable. CK was 52. NT-proBNP 12,802, albumin 3.0. IMAGING STUDIES: Included a chest x-ray done [place] [address] CONSULTATION Name: BEVERLEY VENTURA Room: [address]#: [id number] Admission: 10/15/19 Attend Phys: Roberto Carlos Jenkins MD Discharge: 10/19/19 Date of : 51 Report #: [id number] showed cardiomegaly and interstitial pulmonary edema. He also had some small bilateral pleural effusions. IMPRESSION: 1. Acute kidney injury superimposed on chronic kidney disease. His acute kidney injury has occurred in the face of necessary diuresis. 2. Chronic kidney disease stage 3 to 4 secondary to vascular disease and diabetes. He has a poor left ventricular ejection fraction, so he has chronically diminished renal perfusion. 3. Ischemic cardiomyopathy with left ventricular ejection fraction of 20% to 25% at various times. 4. Systolic heart failure, symptomatically very much improved. 5. Atrial fibrillation. 6. Obstructive sleep apnea. 7. Type 2 diabetes mellitus, insulin-dependent. 8. Episodic hypotension likely related to poor left ventricular function and necessary medications. 9. Anemia of chronic kidney disease and iron deficiency. 10. Prior percutaneous interventions with coronary artery stenting. 11. Dyslipidemia. 12. Pacemaker defibrillator. PLAN: The patient and I discussed the fact that his renal function must, unfortunately, worsen with adequate treatment of his pulmonary edema. His creatinine has increased over a couple of days from 2.1 to 2.9 with his EGFR dropping from the low 30s to 22 mL per minute. Unfortunately, we must tolerate this to allow him to breathe adequately. There is no harm in perhaps diminishing a dose of his diuretic for a day or so, but ultimately he needs to be on sufficient diuresis to keep him out of heart failure. Have not made any changes in medications at present, would agree that his chronic diuresis needs to be sufficient to keep this episodic decompensation from happening often. We will check labs in the a.m. Further recommendations to follow. <ELECTRONICALLY SIGNED> By: Viri Salcido MD 10/19/19 1427 1604 [id number] Salcido MD /nt
== END 2019-10-19 10:21 | disposition home or self-care (01) | DRG 291 ==
LOC: M.ERS 14:56 → M.2W 16:15 → M.TBA-ER 16:15 → M.2W 17:30
PROVIDERS: Emergency Medicine Emergency Medical Services; Internal Medicine Cardiovascular Disease; ADMIT Internal Medicine
DX: I13.0 Hypertensive heart and chronic kidney disease with heart failure and stage 1 through stage 4 chronic kidney disease, or unspecified chronic kidney disease (principal); I50.23 Acute on chronic systolic (congestive) heart failure; J96.00 Acute respiratory failure, unspecified whether with hypoxia or hypercapnia; N17.9 Acute kidney failure, unspecified; N18.4 Chronic kidney disease, stage 4 (severe); E78.5 Hyperlipidemia, unspecified; I48.0 Paroxysmal atrial fibrillation; E11.22 Type 2 diabetes mellitus with diabetic chronic kidney disease; I25.10 Atherosclerotic heart disease of native coronary artery without angina pectoris; I25.5 Ischemic cardiomyopathy; G47.33 Obstructive sleep apnea (adult) (pediatric); D63.1 Anemia in chronic kidney disease; E61.1 Iron deficiency; Z82.49 Family history of ischemic heart disease and other diseases of the circulatory system; Z95.5 Presence of coronary angioplasty implant and graft; Z95.0 Presence of cardiac pacemaker; Z88.8 Allergy status to other drugs, medicaments and biological substances; I25.2 Old myocardial infarction; Z80.3 Family history of malignant neoplasm of breast; Z79.4 Long term (current) use of insulin; Z83.3 Family history of diabetes mellitus

== ENCOUNTER → 2019-10-24 | Outpatient (CLI) | payer BC, MEDICARE ==
[~2019-10-24] MED LIST changes: +HYDRALAZINE 2525 MG PO
[2019-10-24 12:18] LABS: POTASSIUM 3.4 mmol/L (3.5-5.1)
[2019-10-24 12:33] LABS: CALCIUM 8.5 mg/dL (8.5-10.1); CREATININE 2.3 mg/dL (0.6-1.3)
== END ==
LOC: M.LAB 11:31
PROVIDERS: Internal Medicine
DX: N17.9 Acute kidney failure, unspecified (principal)

== ENCOUNTER 2020-04-23 07:22 | Observation (INO) | payer MEDICARE, OTHER ==
[2020-04-23] VITALS (20 sets, daily range): BP systolic 111–155; BP diastolic 50–83
[~2020-04-23] VITALS: Ht 167.6 cm; Wt 92.6 kg
[~2020-04-23 07:22] MED LIST changes: -LIPITOR40 MG PO; +NOXIFOL-D32500 UNIT PO; -VITAMIN D32000 UNIT PO
[2020-04-23 08:21] LABS: ANION GAP 7 mmol/L (7-16); BUN 57 mg/dL (7-18); CALCIUM 8.4 mg/dL (8.5-10.1); CHLORIDE 105 mmol/L (98-107); CO2 30 mmol/L (21-32); CREATININE 2.6 mg/dL (0.6-1.3); GLUCOSE 110 mg/dL (70-99); POTASSIUM 3.2 mmol/L (3.5-5.1); SODIUM 142 mmol/L (136-145)
[2020-04-23 08:22] LABS: APTT 29.8 Seconds (25.0-31.3); INR 1.1
[2020-04-23 08:25] LABS: ALBUMIN 3.2 g/dL (3.4-5.0); ALKALINE PHOSPHATASE 100 U/L (46-116); SGOT 25 U/L (15-37); SGPT 31 U/L (30-65); TOTAL BILIRUBIN 0.5 mg/dL (<0.1-1.0); TOTAL PROTEIN 7.5 g/dL (6.4-8.2)
[2020-04-23 08:27] LABS: HEMATOCRIT 38.2 % (42.0-52.0); HEMOGLOBIN 12.7 gm/dL (14.0-18.0); MCH 28.5 pg (26.0-34.0); MCHC 33.1 g/dL (28.0-37.0); MCV 86.2 fL (80.0-100.0); MPV 9.2 fl. (7.2-11.1); RBC 4.44 mil/uL (4.50-6.00); RDW-CV 16.4 % (10.5-14.5); WBC 7.6 thou/uL (4.0-11.0)
[2020-04-23 08:40] LABS: CHOLESTEROL 142 mg/dL (<200); HDL CHOLESTEROL 63 mg/dL (>40); LDL CHOLESTEROL 71 mg/dL (<100); TC:HDL 2.3 Ratio (Not establshd); TRIGLYCERIDE 42 mg/dL (<150); VLDL 8 mg/dL (<40)
[2020-04-23 08:41] LABS: SERUM ASSESSMENT Clear
--- NOTE | 2020-04-23 13:27 | NUR ---
PT ORIENTED TO ROOM AND UNIT. BED LOW AND LOCKED, SIDE RAILS UPX3,CALL LIGHT IN REACH. TELE APPLIED AND TR BAND INTACT. RIGHT RADIAL SITE CDI. WILL CONTINUE TO ASSESS.
--- NOTE | 2020-04-23 14:21 | CARD ---
[address] [address] CARDIAC CATH REPORT Name: BEVERLEY VENTURA Room: [address] Fartun Dumont#: [id number] Admission: 04/23/20 Attend Phys: Emanuel Bush MD, F Discharge: Date of : 51 Report #: [id number] THIS REPORT FOR: //name// cc: Tanvi Portillo Mohammad K. DO ~ APPROVED REPORT Study performed: 04/23/2020 08:22:33 Patient Details Patient Status: Out-Patient Room #: The patient is a 64 year-old male Event Personnel Emanuel Bush [employer] A[employer], Jay Talbot RN RN, Cr Bacon, Tameka Brown RTR Monitor Procedures Performed Art Access - R radial artery, Left Heart Cath w/or w/o Coronaries LHC, PTCA Single Vessel RCA PCISINGLE, Hemostasis with Hemoband Indication Arrhythmia, Cardiomyopathy Risk Factors Hypercholesterolemia, Coronary Artery Disease, Diabetes Previous Procedures/Diagnoses Previous PCI Admission/Lab Medications/Medications given during procedure Glycoprotein IllbIlla Inhibitors, Heparin Unfract., Nitroglycerin IA 400 mcg, Verapamil IA 5 mg, Heparin IV 8500 units, Aggrastat IV bolus 9 ml, Ticagrelor PO 180 mg Procedure Narrative The patient was brought electively to the Cardiac Catheterization Laboratory and was prepped and draped in a sterile manner. The right wrist was infiltrated with 2% Lidocaine subcutaneous anesthesia. A 6F Slender [place] sheath was inserted into the right radial artery. Coronary angiography was performed using coronary diagnostic catheters. The right coronary system was accessed and visualized with a 6F JR4 catheter. The left [place] [address] CARDIAC CATH REPORT Name: BEVERLEY VENTURA ORO Room: [address] AkashR.#: [id number] Admission: 04/23/20 Attend Phys: Emanuel Bush MD, F Discharge: Date of : 51 Report #: [id number] visualized with a 6F JL4 catheter. The left ventricle was accessed and visualized with a 6F JR4 catheter. Left ventricular/Aortic Valve gradient assessed via catheter pullback. Closure device was deployed with a 6 Fr Vasc-Band Reg 24cm. The patient tolerated the procedure well and there were no complications associated with the procedure. There was no hematoma. Intraoperative Conscious Sedation Sedation start time: 09:31 Case end Time: 10:41 Versed 2 mg Fluoro Time: 18.4 minutes Dose: DAP 258635 cGycm2 2662 mGy Contrast Type and Amount: Visipaque 255 ml Coronary Angiography The patient's coronary anatomy is right dominant. Diagnostic Cath Left Main 0% stenosis LAD Stent that started in the proximal lad and extended beyond the first diagonal had a 30% proximal stenosis. The small apical lad was chronicaly occluded and filled by bridging collaterals. Diagonal 1 proximal stent had 0% stenosis Circumflex Stent in the mid circumflex beyond a small first marginal artery appeared chronicaly occluded and filled distally be bridging collaterals. Right Coronary 30% proximal stenosis and 50% distal stenosis R PDA 80% mid stenosis noted with collaterals to the distal circumflex artery. Left Ventriculography Left Ventriculography was not performed. Hemodynamics The aortic pressure is 113/55 mmHg with a mean of 59 mmHg. The left ventricular pressure is 121/10 mmHg with a mean of mmHg. The left ventricular end diastolic pressure is 14 mmHg. There was no gradient across the aortic valve upon pullback. Pullback from the left ventricle to the aorta revealed no gradient across the aortic valve. PCI Technique Lesion Anticoagulation was achieved with Heparin. bolus of IV aggrastat given Percutaneous coronary intervention [place] [address] CARDIAC CATH REPORT Name: BEVERLEY VENTURA Room: [address]#: [id number] Admission: 04/23/20 Attend Phys: Emanuel Bush MD, F Discharge: Date of : 51 Report #: [id number] posterior descending artery. The lesion stenosis prior to intervention was 80% with FLOR 3 flow. A 6F AL 1 Guide Catheter was used to engage the right ostium. A BMW 190cm Interventional Guidewire was used to cross the lesion. BALLOON DILATION A Balloon catheter Trek RX 2.5 X 8 was inserted and inflated up to 12.00atm for 13seconds. Repeat angiography revealed the following post-dilatation results: 50% stenosis. Because of anterior and superior takeoff of the rca from the right coronary cusp, there was difficulty obtaining adequate support from guide catheters including GOODE guide, right Amplatz I guide, and JCR4 guide. STENT DEPLOYMENT Because of inadequate quide support even with the left amplatz I guide, unable to advance neither the 2.5 x 12 mm bare metal stent, and a 2.5 x 8 mm bare metal stent, which also appeared to be made difficulty by the tortuosity and calcification noted of the rca. Final angiography reveals 50 % stenosis with FLOR 3 flow. Conclusion 1. No restenosis noted of stents in the proximal lad and first diagonal branch, although the apical lad appeared chronically occluded. 2. Chronic occlusion of a stent in the mid circumflex, and the distal circumflex filled by collaterals. 3. 80% stenois noted of the distal PDA branch of the rca. 4. Unsuccessful placement of a bare metal stent in the PDA branch, although PTCA was performed with a residual 50% stenosis. Recommendations Cardiac Rehabilitation Referral Aggressive Medical Therapy Medications Administered Ticagrelor <ELECTRONICALLY SIGNED> By: Emanuel Bush MD, [facility] 04/23/20 1419 1419 1419Emanuel Bush MD, FAC /INF
--- NOTE | 2020-04-23 14:37 | EKG ---
[place] [address] ELECTROCARDIOGRAM REPORT Name: BEVERLEY VENTURA Room: [address] M.R.#: [id number] Admission: 04/23/20 Attend Phys: Emanuel Bush MD Discharge: Date of : 51 Date of Service: 04/23/20 0848 Report #: [id number] THIS REPORT FOR: //name// [facility] Test Date: 2020-04-23 Test Time: 08:48:58 Pat Name: BEVERLEY VENTURA Department: Room: [facility] Gender: M [employer] Lead: : 1955 Requested By: Emanuel Bush Order Number: [id number] Neema MD: Emanuel Bush Measurements Intervals [place] Rate: 60 P: [place]: 208 QRS: -48 QRSD: 132 T: 55 QT: 461 QTc: 461 Interpretive Statements Atrial and ventricular paced complexes Baseline wander in lead(s) V6 Compared to ECG 10/15/2019 15:02:05 paced rhythm no noted Electronically Signed On 04-23-2020 14:35:12 CDT by Emanuel Bush [email or web address] <ELECTRONICALLY SIGNED> By: Emanuel Bush MD, [facility] 04/23/20 1435 0848 0848 Emanuel Bush MD, [facility] /EPI
[2020-04-24] VITALS: BP 155/80
[2020-04-24 04:00] VITALS: BP 164/79
--- NOTE | 2020-04-24 05:44 | NUR ---
RECEIVED REPORT AND ASSUMED CARE OF PATIENT AT 1900. VSS. NO ACUTE CHANGES THROUGHOUT SHIFT. ALL ROUNDINGS COMPLETED, ALL NEEDS MET, FULL ASSESSMENT COMPLETED CHARTED. CALL LIGHT AND PERSONAL ITEMS IN REACH.
[2020-04-24 08:00] VITALS: BP 165/83
--- NOTE | 2020-04-24 09:09 | D ---
[address] [address] DISCHARGE SUMMARY Name: BEVERLEY VENTURA Room: [address] Fartun Dumont#: [id number] Admission: 04/23/20 Attend Phys: Emanuel Bush MD, F Discharge: Date of : 51 Report #: [id number] THIS REPORT FOR: //name// cc: Tanvi Portillo Mohammad K. DO THIS REPORT FOR: //name// CC: Emanuel Portillo DATE OF SERVICE: 04/24/2020 DISCHARGE DIAGNOSES: 1. Coronary artery disease. 2. Diabetes. 3. Ischemic cardiomyopathy. 4. Hypertension. 5. History of paroxysmal atrial fibrillation. 6. Chronic kidney disease. 7. Hyperlipidemia. 8. Recent discharge of his defibrillator for an episode of ventricular fibrillation. CONSULTANTS: None. PROCEDURES: Left heart catheterization with percutaneous transluminal coronary angioplasty of the posterior descending branch of the right coronary artery via the radial approach. HISTORY OF PRESENT ILLNESS: The patient is a 64-year-old white male who was brought to the outpatient department to undergo repeat cardiac catheterization. The patient had previous stents placed in his LAD and circumflex by Dr. Saul Rodriguez in 2016 here at [facility]. He was found to have evidence of an ischemic cardiomyopathy and eventually had ICD implanted by Dr. James. His last echocardiogram in 07/2009 suggested an ejection fraction of 35%. The patient has a history of atrial fibrillation and has been on amiodarone and chronically anticoagulated. The patient was at home recently asleep. Apparently, he had a brief loss of consciousness. When his device was interrogated, there was an episode of ventricular fibrillation, which was cardioverted by the defibrillator. The patient actually denied any shock. He was seen by Dr. James in the EP Clinic who recommend increase his amiodarone to 400 mg a day. Because of the recent discharge of his defibrillator and coronary artery disease, [place] [address] DISCHARGE SUMMARY Name: BEVERLEY VENTURA Room: [address]#: [id number] Admission: 04/23/20 Attend Phys: Emanuel Bush MD, F Discharge: Date of : 51 Report #: [id number] recommended. However, the patient denies recent chest pain, increased shortness of breath, palpitations, edema. PAST MEDICAL HISTORY: Otherwise, he had diabetes, sleep apnea, and chronic kidney disease. CURRENT MEDICATIONS: Include amiodarone, which is now 400 mg a day, Eliquis 2.5 mg a day, Lipitor 80 mg a day, Bumex 1 mg a day, carvedilol 6.25 mg twice a day, Proscar 5 mg a day, hydralazine 25 mg twice a day, his insulin therapy, Imdur 30 mg a day, metolazone only as needed for edema, potassium twice day, Hytrin 5 mg a day. Previous carotid Doppler study showed less than 50% stenosis. He uses CPAP at bedtime. PHYSICAL EXAMINATION: VITAL SIGNS: On admission included a blood pressure of 150/80, pulse 60. He was afebrile. CHEST: Clear to auscultation. CARDIOVASCULAR: Regular rate and rhythm. ABDOMEN: Soft. EXTREMITIES: Had no edema. LABORATORY WORK: On admission, sodium 142, potassium 3.2, BUN 57, creatinine 2.6. His liver function studies were normal. Cholesterol 142, triglycerides 42, HDL 63, LDL 71. His white blood cell count was 7.6, hemoglobin 12.7. HOSPITAL COURSE: The patient was admitted to a monitored bed. He was then taken to the cardiac catheterization lab and I performed left heart catheterization via the right radial artery. No ventriculogram was performed because of his chronic kidney disease. Left ventricular end diastolic pressure is only 12. Coronary arteriogram, the stent in the LAD had no restenosis. However, the apical LAD was chronically occluded. The stent in the first diagonal branch had no restenosis. The stent in the circumflex was chronically occluded and the distal circumflex filled by collaterals. The right coronary artery had no significant disease, although there was a distal posterior descending branch that had a mid 80% stenosis. He was given heparin and Aggrastat. I then performed angioplasty of the posterior descending branch. However, due to abnormal takeoff of the right coronary artery and tortuosity of the vessel, I was unable to place a bare metal stent. It was decided to finish with balloon angioplasty only. Residual narrowing was only 50%. He tolerated the procedure well. The following day, there was no hematoma in the right wrist. He was loaded with Brilinta. Prior to discharge, he was ambulating, had no further complaints. He was discharged to continue his home medications. In addition, he was started on aspirin 81 mg a day, Brilinta 90 mg twice a day. I recommend he continue the aspirin for at least 3 [place] [address] DISCHARGE SUMMARY Name: BEVERLEY VENTURA Room: [address] Ramandeep.#: [id number] Admission: 04/23/20 Attend Phys: Emanuel Bush MD, F Discharge: Date of : 51 Report #: [id number] angioplasty. At that time, I will continue Brilinta only. He was not to resume the Eliquis for 24 hours after the procedure. He was discharged to see my nurse practitioner in a week. I plan on seeing him back in Cardiology Clinic in 6 months. He will continue to have his defibrillator checked at home. He was to follow up with Dr. James in EP clinic in 2 weeks to assess whether he has had recurrent ventricular fibrillation after increase in his amiodarone. He will need thyroid function studies, liver function studies, and chest x-ray every 6 months while on chronic amiodarone therapy. His prognosis is guarded due to his multiple medical problems. He will continue to be seen in the Nephrology Clinic. He was to contact my office if he had recurrent chest pain, shortness of breath or syncope. He will need followup carotid Doppler study in the future. He was given nitroglycerin to take as needed for chest pain. <ELECTRONICALLY SIGNED> By: Emanuel Bush MD, [facility] 04/24/20908 4 0846Daag Bush MD, FACC /nt
[2020-04-24 09:32] LABS: HEMATOCRIT 39.7 % (42.0-52.0); HEMOGLOBIN 13.2 gm/dL (14.0-18.0); MCHC 33.3 g/dL (28.0-37.0); MPV 9.1 fl. (7.2-11.1); RBC 4.57 mil/uL (4.50-6.00); RDW-CV 16.1 % (10.5-14.5); WBC 8.3 thou/uL (4.0-11.0)
[2020-04-24 09:49] LABS: CALCIUM 8.6 mg/dL (8.5-10.1); CREATININE 2.4 mg/dL (0.6-1.3); POTASSIUM 3.2 mmol/L (3.5-5.1)
[2020-04-24 11:16] VITALS: BP 165/83
[2020-04-24] MEDS ORDERED: BRILINTA90 MG PO (11:16)
[2020-04-24] MEDS ORDERED: NITROGLYCERIN0.4 MG SUBLING (11:17)
[2020-04-24] MEDS ORDERED: ELIQUIS5 MG PO (11:21)
[2020-04-24 11:33] VITALS: BP 165/83
--- NOTE | 2020-04-24 13:24 | NUR ---
PT DCD TO HOME IN STABLE CONDITION. DC INSTRUCTIONS, PRESCRIPTIONS, FOLLOW UPS AND PLAN OF CARE RVEIEWED WITH PT AND PT HAD NO FURTHER QUESTIONS.
--- NOTE | 2020-04-24 13:32 | EKG ---
[place] [address] ELECTROCARDIOGRAM REPORT Name: BEVERLEY VENTURA Room: [address] M.R.#: [id number] Admission: 04/23/20 Attend Phys: Emanuel Bush MD Discharge: Date of : 51 Date of Service: 04/24/20 0817 Report #: [id number] THIS REPORT FOR: //name// [facility] Test Date: 2020-04-24 Test Time: 08:17:30 Pat Name: BEVERLEY VENTURA Department: Room: [address] Gender: M Nurse Practitioner Adult: : 1955 Requested By: Emanuel Bush Order Number: [id number] Neema MD: Luke Mckeon Measurements Intervals [place] Rate: 60 P: [place]: 195 QRS: -46 QRSD: 133 T: 85 QT: 446 QTc: 446 Interpretive Statements Atrial and ventricularly paced rhythm Baseline wander in lead(s) II,III,aVF Compared to ECG 04/23/2020 08:48:58 No significant changes noted Electronically Signed On 04-24-2020 13:30:37 CDT by Luke Mckeon [email or web address] <ELECTRONICALLY SIGNED> By: Luke Mckeon MD, FACC 04/24/20 1330 6 6 Luke Mckeon MD, FAC /EPI
== END 2020-04-24 12:45 | disposition home or self-care (01) ==
LOC: M.CL 07:22 → M.TBA-CV 11:22 → M.2W 12:53
PROVIDERS: ADMIT Internal Medicine Cardiovascular Disease
DX: I25.10 Atherosclerotic heart disease of native coronary artery without angina pectoris (principal); E11.22 Type 2 diabetes mellitus with diabetic chronic kidney disease; I12.9 Hypertensive chronic kidney disease with stage 1 through stage 4 chronic kidney disease, or unspecified chronic kidney disease; N18.9 Chronic kidney disease, unspecified; E78.5 Hyperlipidemia, unspecified; I25.5 Ischemic cardiomyopathy

== ENCOUNTER → 2020-12-26 | Outpatient (CLI) | payer MEDICARE, OTHER ==
[2020-12-26 12:15] LABS: ALBUMIN 2.9 g/dL (3.4-5.0); DIRECT BILIRUBIN 0.2 mg/dL (<0.1-0.3); TOTAL BILIRUBIN 0.4 mg/dL (<0.1-1.0); TOTAL PROTEIN 6.8 g/dL (6.4-8.2)
== END ==
LOC: M.LAB 11:17
PROVIDERS: ATTEND Nurse Practitioner
DX: I48.91 Unspecified atrial fibrillation (principal); Z79.899 Other long term (current) drug therapy